=== PATIENT | male | born 1950 | race Caucasian/White ===

== ENCOUNTER → 2017-10-25 | Outpatient (CLI) | payer OTHER, MEDICAID ==
[~2017-10-25] MED LIST: ALEVE220 MG PO; AMOXIL 875 MG875 M1 PO; AUGMENTIN 875-1 EACH PO; CIPRO500 MG PO; DIABETA 5MG TABL5 MG PO; DOXYCYCLINE 10100 MG PO; DUONEB 2.5-0.5 M3 ML INH; FERREX 150 PLU1 EAC1 PO; GLUCOPHAGE XR500 MG PO; HYTRIN 1 MG CAP1 MG PO; IBUPROFEN 800800 M1 PO; INSULIN NEEDLES; LANCETS; LANTUS SUBQ; LEVAQUIN 500 M500 M2 PO; LIORESAL 10 MG10 MG PO; LISINOPRIL20 MG PO; LISINOPRIL5 MG PO; MAGNESIUM OXID400 MG PO; MERREM1 GM IV; METFORMIN HCL500 M1 PO; MINOCIN100 MG PO; NAPROSYN375 MG PO; NASAL DECONGEST10 MG PO; NEURONTIN 300300 M1 PO; NOVOLOG100 UNIT/1 SUBQ; NYAMYC15 GM TOP; ONDANSETRON HCL4 M2 PO; OXYCODONE HCL 55 MG PO; OXYCONTIN10 M1 PO; OYSTER SHELL C1 EAC6 PO; PIOGLITAZONE15 MG PO; PREDNISONE 10 M10 MG PO; PROTONIX40 M1 PO; THERAGRAN-M PR1 EAC1 PO; TYLENOL325 MG PO; UNASYN 3 GM VIAL3 G1 IVPB; UNICOMPLEX M TA1 TA1 PO; VANCO 1.251.25 GM/15 IV; VITAMINC500 PO; ZYVOX600 MG PO
[2017-10-25 11:09] VITALS: BP 100/62; BP 102/44; BP 105/53; BP 108/50
[2017-10-25 13:35] VITALS: BP 100/58; BP 100/62; BP 105/53; BP 112/74
--- NOTE | 2017-10-25 15:40 | NUR ---
TRANSFUSION COMPLETED AND TOLERATED WELL. DENIES ADVERSE REACTION AND NONE NOTED.
== END ==
LOC: M.INFUS 05:03
DX: D64.9 Anemia, unspecified (principal)

== ENCOUNTER → 2017-11-23 | Outpatient (CLI) | payer OTHER, MEDICAID ==
[2017-11-23 08:45] VITALS: BP 117/60
[2017-11-23 10:10] VITALS: BP 115/59; BP 115/69; BP 132/61; BP 141/63
[2017-11-23 12:10] VITALS: BP 103/58; BP 115/59; BP 115/69; BP 125/66; BP 91/56
--- NOTE | 2017-11-23 14:44 | NUR ---
PT ARRIVED TO INFUSION AT 0815. TYPE AND CROSSMATCH ORDERD AND PIV STARTED IN PT'S R-FA ON 5TH ATTEMPT, 2ND RN. PT'S V.S. STABLE, THOUGH SAT IS ONLY 83%. PT.REFUSED OXYGEN THOUGH. 1ST UNIT OF BLOOD GOT STARTED AT 1015. PT TOLERATED WELL. 2ND UNIT OF BLOOD STARTED AT 1220. PT. HAD HIS NURSING AID WITH HIM THE WHOLE TIME. LUNCH WAS PROVIDED THOUGH UNSURE OF HOW MUCH HE ATE. HE SLEPT MOST OF THE TIME. HE RECLINED AND/OR SAT UP IN HIS ELECTRIC W/C, AND SEEMED PRETTY UNCOMFORTABLE BY THE END, THOUGH HE DENIED ANY NEEDS. AFTER INFUSION COMPLETE AND FINAL V.S. OBTAINED, PT DC'ED HOME AT THIS TIME.
== END ==
LOC: M.INFUS 01:53
DX: D64.9 Anemia, unspecified (principal); D47.3 Essential (hemorrhagic) thrombocythemia

== ENCOUNTER → 2018-01-22 | Outpatient (CLI) | payer OTHER, MEDICAID ==
--- NOTE | 2018-01-22 10:37 | NUR ---
Pt arrived via electric w/c to pacu for transfusion of 2 units of blood. Had David lift & bed ready for patient but pt is refusing to be placed in bed. Encouraged pt to lay down d/t length of time to be in the w/c and that he has known pressure sores. Pt stated that he will move himself around in the chair and would lean himself back to a bed position. Reviewed med and history with no changes needed for last infusion in October.
--- NOTE | 2018-01-22 11:00 | NUR ---
Pt now reclining back in his chair to a full lying position.
[2018-01-22 11:32] VITALS: BP 92/44; BP 94/72; BP 96/55
--- NOTE | 2018-01-22 12:30 | NUR ---
Pt is sitting up eating lunch at this time.
--- NOTE | 2018-01-22 13:30 | NUR ---
Pt tolerating infusion well, has changed position to tilt to right side.
[2018-01-22 13:54] VITALS: BP 102/58; BP 87/50; BP 92/61; BP 94/72
--- NOTE | 2018-01-22 14:35 | NUR ---
Pt is tilting back to reclined position. Brought back up the potential for getting into the bed and patient refused at this time.
--- NOTE | 2018-01-22 17:00 | NUR ---
Pt infusion completed at 1600. Flushed line with NS and IV DC'd at 1620. Pt has no s/sx of reaction to the blood. Called trasport for berry picker at 1630. Report called to [facility] and spoke with nurse Tolentino. Urine emptied from bautista bag at 950cc. Pt out for transport at 1635.
== END ==
LOC: M.INFUS 01:27
DX: D64.9 Anemia, unspecified (principal)

== ENCOUNTER 2018-01-24 04:20 | Inpatient (IN) | payer OTHER, MEDICAID ==
[~2018-01-24] VITALS: Ht 172.7 cm; Wt 84.8 kg
[2018-01-24] VITALS (20 sets, daily range): BP systolic 85–113; BP diastolic 39–62
[~2018-01-24 04:20] MED LIST changes: -DOXYCYCLINE 10100 MG PO; -DUONEB 2.5-0.5 M3 ML INH; -LEVAQUIN 500 M500 M2 PO; -NYAMYC15 GM TOP; -ONDANSETRON HCL4 M2 PO; -OYSTER SHELL C1 EAC6 PO; -PREDNISONE 10 M10 MG PO; -PROTONIX40 M1 PO
--- NOTE | 2018-01-24 04:28 | NUR ---
RT AT BEDSIDE TO GIVE NEB TX
[2018-01-24] MEDS ORDERED: ONDANSETRON HCL4 M2 PO (04:30)
[2018-01-24] MEDS ORDERED: DUONEB 2.5-0.5 M3 ML INH (04:30)
[2018-01-24] MEDS ORDERED: NYAMYC15 GM TOP (04:30)
[2018-01-24] MEDS ORDERED: OYSTER SHELL C1 EAC6 PO (04:31)
[2018-01-24 04:43] LABS: BE 0.5 mmol/L (-2 to +3); HCO3 25.4 mmol/L (22.0-26.0); PO2 119.1 mmHg (75.0-100.0)
[2018-01-24 05:07] LABS: HEMATOCRIT 30.2 % (42.0-52.0); HEMOGLOBIN 9.9 gm/dL (14.0-18.0); MCH 24.6 pg (26.0-34.0); MCHC 32.7 g/dL (28.0-37.0); MCV 75.3 fL (80.0-100.0); MPV 6.6 fl. (7.2-11.1); NUCLEATED RBCS 0 /100WBC; PLATELET COUNT* 716 thou/uL (150-400); RBC 4.01 mil/uL (4.50-6.00); RDW-CV 20.1 % (10.5-14.5); WBC 37.3 thou/uL (4.0-11.0)
[2018-01-24 05:32] LABS: APTT 33.6 Seconds (25.0-31.3); INR 1.2; PROTIME 11.3 Seconds (9.20-11.50)
[2018-01-24 05:36] LABS: ANION GAP 13 mmol/L (7-16); BUN 20 mg/dL (7-18); CALCIUM 8.3 mg/dL (8.5-10.1); CHLORIDE 94 mmol/L (98-107); CO2 23 mmol/L (21-32); CREATININE 0.6 mg/dL (0.6-1.3); GLUCOSE 111 mg/dL (70-99); POTASSIUM 4.7 mmol/L (3.5-5.1); SODIUM 130 mmol/L (136-145)
[2018-01-24 05:46] LABS: ALBUMIN 2.1 g/dL (3.4-5.0); ALKALINE PHOSPHATASE 113 U/L (46-116); LIPASE 32 U/L (73-393); MAGNESIUM 1.2 mg/dL (1.8-2.4); NT-PRO BRAIN NAT PEPTIDE 735 pg/mL (<300); SGOT 23 U/L (15-37); SGPT 13 U/L (30-65); TOTAL BILIRUBIN 0.5 mg/dL (<0.1-1.0); TOTAL PROTEIN 6.9 g/dL (6.4-8.2); TROPONIN-I LEVEL <0.06 ng/mL (<0.06)
[2018-01-24 06:04] LABS: ABSOLUTE LYMPHOCYTES 0.4 thou/uL (0.8-5.3); ABSOLUTE MONOCYTES 0.4 thou/uL (0.0-1.2); ABSOLUTE NEUTROPHILS 36.6 thou/uL (1.6-8.1)
[2018-01-24 06:05] LABS: ANISOCYTOSIS 1+; PLATELET ESTIMATE INCREASED; TOXIC GRANULATION 1+
--- NOTE | 2018-01-24 10:50 | NUR ---
ASSUMED CARE OF PT AT 0730. REPORT RECEIVED. PT RESTING IN BED. PT A&0X4, PALE, FORGETFUL, ANXIOUS AND IRRITABLE. ADMISSION ASSESSMENT AND HISTORY COMPLETED. REFER TO CHARTING. 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 ON 11 L HIGH FLOW NC SAT 93%. TACHYPNEA NOTED. COARSE LUNG SOUNDS NOTED. PT STATES HE IS NOT SHORT OF BREATH AND DOES NOT WANT TO BE ON THAT MUCH OXYGEN. EDUCATION GIVEN BY NURSING AND RESPIRATORY STAFF. PT STATES HE DOES NOT WEAR ANY OXYGEN AT THE [facility] EXCEPT FOR CPAP AT [facility]. PT RECEIVING BREATHING TREATMENTS. GOODEN TO DEPENDENT DRAINAGE. PT CAME WITH GOODEN CATHETER FROM [facility]. IVF AT 150ML/HR. PT IS CONTRACTED, POOR HISTORIAN. MUTIPLE WOUNDS NOTED THROUGHOUT. STAGE 4 TO EACH BUTTOCKS, RASH TO LEFT HIP AND REDNESS TO HEELS. WOUND CARE CONSULTED. PT REFUSING TO REPOSITION EVERY 2 HOURS FOR COMFORT. EDUCATION GIVEN. PT HYPOTENSIVE. SEPSIS SCREEN POSITIVE. DR GARCIAS HERE TO SEE PT. ORDERS RECEIVED FOR PT TO TRANSFER TO ICU AND FOR CT ABD/PELVIS AND CTA. PT NPO. WOUND CARE NURSEADONIS HERE TO SEE PT- WILL SEE PT IN ICU. REPORT GIVEN TO [facility] CLINICAL REGISTERED NURSE. PT TRANSFERRED TO ICU VIA BED, CHART AND ALL BELONGINGS WITH NURSING STAFF TO BED 05.
--- NOTE | 2018-01-24 11:16 | NUR ---
CM SPOKE MAGGIE THE PATIENT TO DISCUSS HOME SITUATIION, DISCHARGE PLANNING, AND TO INFORM OF THE ROLE OF CM. PATIENT IS KNOWN TO CM FROM PREVIOUS ADMISSION. PATIENT RESIDES AT [facility], AND PLANS TO RETURN THERE AT D/C. THE STAFF AT [facility] ASSIST THE PATIENT WITH ADL'S, AND USE A MAYUR LIFT FOR ALL TRANSFERS. RN IN-CHARGE OF THE PATIENT INFORMS THAT THE PATIENT WILL TRANSFER TO ICU BED 5. CM WILL REMAIN AVAIALBLE TO ASSIST AND FOLLOW NEEDED. [facility] PHONE: [phone] FAX:[phone]
--- NOTE | 2018-01-24 11:48 | NUR ---
PT ADMITTED TO ROOM 005 FROM 2ND FLOOR AT 1045 . PT AOX4. PER DR. PHILLIP PT TO HAVE 30ML/KG FLUID BOLUS FOR SEPSIS AND HAVE CENTRAL LINE INSERTED. DR. BLUM NOTIFIED OF CENTRAL LINE NEED AND PT EDUCATED ON PROCEDURE AND SIGNED CONSENT. PT NPO AT THIS TIME FOR CT AROUND 1 PM WILL CONTINUE TO MONITOR.
--- NOTE | 2018-01-24 14:10 | CON ---
[facility] [address] [place] [address] CONSULTATION Name: KARIKIKI Abhi Room: [address] IN M.R.#: [id number] Admission: 01/24/18 Attend Phys: David Herrera MD Discharge: Date of : 54 Report #: [id number] THIS REPORT FOR: //name// [facility] DATE OF SERVICE: 01/24/2018 INFECTIOUS DISEASE CONSULTATION ATTENDING PHYSICIAN: David Herrera M.D. REASON FOR EVALUATION: Pneumonitis, complicated by respiratory failure and encephalopathy. HISTORY OF PRESENT ILLNESS: Chart reviewed, the patient examined. This is a 67-year-old whom I am quite familiar with, who has quadriparesis, has bilateral ischial decubitus ulcers, both of which are stage 4 and chronic osteomyelitis. He resides in a senior living. He has been evaluated for more definitive treatment. Apparently, it has not been done. At the senior living, he developed a productive cough for the last 2 days prior to admission, described phlegm is having some degree of color. It is somewhat variable in terms of volume. It is not clear whether he has fevers. He was felt to be encephalopathic. Evaluation confirmed hypoxemia. Also hemoglobin less than 7. It is notable he wears CPAP at night for sleep apnea and he was trying to remove that. He was noted to be hypotensive as well. He was admitted and then subsequently transferred to the Intensive Care Unit, where I have seen him. He is actually reasonably lucid at this point. He is on supplemental oxygen. He admits to moderate degree of discomfort. Lactic acid is 1.3. ABGs: pH showed 7.4, pCO2 of 42 and pO2 of 119, although he was on 100% FIO2. White count was markedly elevated at 37.3. He did have evidence of toxic granulations. He was dosed with vancomycin, piperacillin, tazobactam and levofloxacin. ALLERGIES: SULFA AND HYDROCODONE. CURRENT MEDICATIONS: Include p.r.n. analgesics, antiemetics, ipratropium and albuterol inhaler, ascorbic acid, insulin lispro, methylprednisolone, gabapentin, vancomycin, enoxaparin, terazosin, levofloxacin and pantoprazole. PAST MEDICAL HISTORY: As described above, history of chronic anemia, history of pheochromocytoma, chronic decubitus ulcers and some COPD and diabetes mellitus. SOCIAL HISTORY: He smokes cigarettes, past use of ethanol. FAMILY HISTORY: [place] [address] CONSULTATION Name: KIKI PIERCE Room: [address] IN [facility]#: [id number] Admission: 01/24/18 Attend Phys: David Herrera MD Discharge: Date of : 54 Report #: [id number] REVIEW OF SYSTEMS: Denies significant pulmonary-related complaints at this point. Denies nausea or diarrhea. No abdominal-related pain. PHYSICAL EXAMINATION: GENERAL: He appears chronically ill, undernourished. He is only mildly encephalopathic at this point. VITAL SIGNS: Temperature 98.2, pulse 95, respirations 15 and blood pressure 103/54. SKIN: Warm, dry. NECK: Supple. LUNGS: Scattered coarse breath sounds. HEART: Regular. Borderline tachycardic. I do not appreciate a murmur. ABDOMEN: Soft. It is mildly distended. There are no peritoneal signs. Bilateral ischial wounds are inspected. He does have a fairly good base, especially on the left. On the right, there is a small area of palpable bone that is appreciated. Overall degree of inflammation is mild to moderate. There is no significant odor or purulence at this point. GENITOURINARY: Deferred. RECTAL: Deferred. LABORATORY DATA: Chest x-ray, some bilateral interstitial infiltrates. CBC: White count of 37.3, H and H 9.9 and 30.3 and platelets of 716,000. Electrolytes: Sodium 130, potassium 4.7, chloride 94, bicarbonate is 23, anion gap of 13 and BUN and creatinine 20 and 0.6. LFTs unremarkable. Albumin of 2.1. Total protein 6.9. Estimated GFR of 135. PT of 11.3, INR 1.2. Lactic acid of 1.3. ABGs: A pH of 7.400, pCO2 of 42 and pO2 of 119.1, it was on 100%. ASSESSMENT AND PLAN: Pneumonitis in the setting of the patient who is profoundly immunocompromised. I think he has lost additional weight since I have seen him. He continues to have bilateral deep ischial wounds. I am not inclined to think that sepsis is due to them and that it is quite consistent with osteomyelitis. We will continue combination therapy for the moment, giving supportive measures including the oxygen supplementation. He was encouraged to expectorate any sputum and to optimize his nutritional status. <ELECTRONICALLY SIGNED> By: Jenaro Rangel MD 01/24/18 1410 1320 [id number] Rangel MD /nt
--- NOTE | 2018-01-24 15:59 | EKG ---
[place] [address] ELECTROCARDIOGRAM REPORT Name: KIKI PIERCE Room: [address] ADM IN .R.#: [id number] Admission: 01/24/18 Attend Phys: David Herrera MD Discharge: Date of : 54 Report #: [id number] THIS REPORT FOR: //name// [facility] ED Test Date: 2018-01-24 Test Time: 04:26:27 Pat Name: KIKI PIERCE Department: Room: [facility] Gender: M Cook Dessert: MEMO Esparza : 1950 Requested By: Suhas Mendoza Order Number: [id number] MD: Ion Pulido Measurements Intervals [place] Rate: 124 P: 74 FL: 155 QRS: -90 QRSD: 107 T: 96 QT: 310 QTc: 446 Interpretive Statements Sinus tachycardia Probable left atrial enlargement Inferior infarct, old Consider anterior infarct Lateral leads are also involved Compared to ECG 06/22/2017 11:29:40 Myocardial infarct finding now present Electronically Signed On 01-24-2018 15:59:11 CDT by Ion Pulido [email or web address] <ELECTRONICALLY SIGNED> By: Ion Pulido MD, [facility] 01/24/18 1559 0426 0426 Ion Pulido MD, [facility] /EPI
--- NOTE | 2018-01-24 17:20 | 2DMMODE ---
[place] [address] 2 D/M-MODE ECHOCARDIOGRAM Name: KARIKIKI L Room: [address] IN [facility]#: [id number] Admission: 01/24/18 Attend Phys: David Herrera, Discharge: Date of : 54 Date of Service: 01/24/18 1720 Report #: [id number] THIS REPORT FOR: //name// APPROVED REPORT Study performed: 01/24/2018 14:20:59 EXAM: Comprehensive 2D, Doppler, and color-flow Echocardiogram Patient Location: In-Patient Room #: [facility] Status: routine BSA: 1.68 HR: 84 bpm BP: 98/54 mmHg Rhythm: NSR Other Information Technically limited study due to subcostal view only view available. Indications Hypotension 2D Dimensions LVEF(%): 72.40 (>50%) IVSd: 11.88 (7-11mm) LVOT Diam: 22.70 (18-24mm) LVDd: 46.39 mm PWd: 10.94 (7-11mm) LVDs: 27.16 (25-40mm) Aortic Root: 39.03 mm Holcomb's LVEF: 72.40 % Aortic Valve AoV Peak Conner.: 1.49 m/s AO Peak Gr.: 8.89 mmHg LVOT Max P.84 mmHg AO Mean Gr.: 5.12 mmHg LVOT Mean P.56 mmHg LVOT Max V: 0.84 m/s AO V2 VTI: 26.18 cm LVOT Mean V: 0.58 m/s GEMMA (VTI): 3.13 cm2 LVOT V1 VTI: 20.27 cm Pulmonary Valve PV Peak Conner.: 0.88 m/s PV Peak Gr.: 3.08 mmHg Tricuspid Valve TR Peak Gr.: 40.08 mmHg RVSP: 45.00 [place] [address] 2 D/M-MODE ECHOCARDIOGRAM Name: KIKI PIERCE Abhi Room: [address] IN [facility].#: [id number] Admission: 01/24/18 Attend Phys: David Herrera, Discharge: Date of : 54 Date of Service: 01/24/18 1720 Report #: [id number] Left Ventricle The left ventricle is normal size. There is normal LV segmental wall motion. There is normal left ventricular wall thickness. Left ventricular systolic function is normal. The left ventricular ejection fraction is within the normal range. LVEF is 60-65%. This study is not technically sufficient to allow evaluation of the LV diastolic function. Right Ventricle The right ventricle is normal size. The right ventricular systolic function is normal. Atria Left atrium is mildly dilated. Right atrium is mildly dilated. Aortic Valve Mild aortic valve sclerosis. Mild aortic regurgitation. There is no aortic valvular stenosis. Mitral Valve The mitral valve is normal in structure. Trace mitral regurgitation. No evidence of mitral valve stenosis. Tricuspid Valve The tricuspid valve is normal in structure. Mild tricuspid regurgitation. The RVSP is 45-50 mmHg. Pulmonic Valve The pulmonary valve is normal in structure. There is no pulmonic valvular regurgitation. Great Vessels The aortic root is normal in size. IVC is normal in size and collapses with >50% inspiration Pericardium There is no pericardial effusion. <Conclusion> The left ventricle is normal size. There is normal left ventricular wall thickness. Left ventricular systolic function is normal. The left ventricular ejection fraction [place] [address] 2 D/M-MODE ECHOCARDIOGRAM Name: KIKI PIERCE Room: [address]#: [id number] Admission: 01/24/18 Attend Phys: David Herrera, Discharge: Date of : 54 Date of Service: 01/24/18 1720 Report #: [id number] LVEF is 60-65%. The right ventricle is normal size. Left atrium is mildly dilated. Right atrium is mildly dilated. Mild aortic valve sclerosis. Mild aortic regurgitation. There is no aortic valvular stenosis. The mitral valve is normal in structure. Trace mitral regurgitation. The tricuspid valve is normal in structure. Mild tricuspid regurgitation. The RVSP is 45-50 mmHg. IVC is normal in size and collapses with >50% inspiration There is no pericardial effusion. There is normal LV segmental wall motion. <ELECTRONICALLY SIGNED> By: Ion Pulido MD, FACC 01/24/181719 19 19 Ion Pulido MD, FACC /INF
[2018-01-25] VITALS (16 sets, daily range): BP systolic 88–117; BP diastolic 44–62
[2018-01-25 04:22] LABS: ABSOLUTE LYMPHOCYTES 0.4 thou/uL (0.8-5.3); ABSOLUTE MONOCYTES 0.6 thou/uL (0.0-1.2); ABSOLUTE NEUTROPHILS 33.3 thou/uL (1.6-8.1); BASOPHILS 0.1 %; HEMATOCRIT 24.5 % (42.0-52.0); LYMPHOCYTES 1.1 %; MCH 24.3 pg (26.0-34.0); MCHC 32.1 g/dL (28.0-37.0); MCV 75.8 fL (80.0-100.0); MONOCYTES 1.7 %; NUCLEATED RBCS 0 /100WBC; PLATELET COUNT* 679 thou/uL (150-400); POLYS 97.1 %; RBC 3.23 mil/uL (4.50-6.00); RDW-CV 20.3 % (10.5-14.5); WBC 34.3 thou/uL (4.0-11.0)
[2018-01-25 04:40] LABS: PREALBUMIN 9.1 mg/dL (18.0-35.7)
[2018-01-25 04:52] LABS: CREATININE 0.7 mg/dL (0.6-1.3)
[2018-01-25 04:57] LABS: HEMOGLOBIN 7.8 gm/dL (14.0-18.0)
[2018-01-25 05:11] LABS: POTASSIUM 3.6 mmol/L (3.5-5.1)
--- NOTE | 2018-01-25 05:11 | NUR ---
PT. PROGRESSING TOWARDS GOALS. BP'S REMAIN SOFT BUT STABLE. REFUSED MOST TURNS THIS SHIFT. IVF REMAIN INFUSING. SLEEPING AT THIS TIME, CALL LIGHT IN REACH. WILL CONTINUE TO MONITOR.
[2018-01-25] MEDS ORDERED: OXYCODONE HCL 55 MG PO (06:17)
--- NOTE | 2018-01-25 08:20 | NUR ---
PT BS CHECKED RESULTED 243, PT REQUESTS 1 UNIT. PT LIKE TO DICTATE CARE RIGHT TO THE POINT OF WHAT FINGER AND WHERE ON FINGER TO TO OBTAIN BLOOD SAMPLE. PT REFUSING TURN AT 0800, PT TEACHING WHY HE NEEDS TO TURN, PT UNDERSTANDS TEACHING BUT STILL REFUSES TO TURN. PT EATING BREAKFAST TRAY AND IS VERY PATICULAR IN HOW TRAY IS PLACED. PT IN SEMI FOWLERS POSITION, ASKED PT IF HE WOULD LIKE ME TO ELEVATE HIS HEAD HIGHER IN BED, PT REFUSED STATING THAT I ALWAYS EAT LIKE THIS. PT GIVEN EGULAR JELLY ON TRAY, PT REQUESTED ALL OF JELLY BE PLACED ON TOAST.WILL CONTINUE TO MONITOR FREQUENTLY
--- NOTE | 2018-01-25 12:06 | NUR ---
WOUND CARE NOTE: CONSULT RECEIVED FOR ULCER. PATIENT WELL KNOWN TO ME FROM PREVIOUS HOSPITAL STAYS. PRESENTS WITH CHRONIC STAGE 4 PRESSURE ULCERS TO BILATERAL ISCHIAL TUBEROSITIES. RIGHT ISCHIAL TUBEROSITY: 5X4X2.9 WITH UNDERMINING FROM 12-3 O'CLOCK 5.5 CM. WOUND IS PINK, MOIST. NO SLOUGH TISSUE NOTED. THERE IS BONE PRESENT IN APPROXIMATELY 10% OF WOUND BED. CHLOE-WOUND WITH NEW EPITHELIUM AND SLIGHT INFLAMMATION. WOUND IS DRAINING MODERATE AMOUNTS OF SEROSANGUINEOUS DRAINAGE. LEFT ISCHIAL TUBEROSITY: 6.5X4X2.5 WITH UNDERMINING FROM 6-12 O'CLOCK 4CM. WOUND IS PINK, MOIST. NO SLOUGH TISSUE NOTED. ABLE TO PALPATE BONE, NOT VISIBLE. CHLOE-WOUND WITH NEW EPITHELIUM AND SLIGHT INFLAMMATION. WOUND IS DRAINING MODERATE AMOUNTS OF SEROSANGUINEOUS DRAINAGE. CLEANSED BOTH OF THESE WOUNDS WELL WITH WOUND CLEANSER, PATTED DRY. PACKED WITH AQUACEL AG AND SECURED WITH BORDERED FOAM. LEFT TROCHANTER: AREA OF BLANCHABLE REDNESS, POSSIBLE ABRASION, NOT A PRESSURE ULCER. APPLIED BARRIER OINTMENT. LATERAL LEFT FOOT: 2 AREAS OF BLANCHABLE REDNESS-MALLEOLUS AND 5TH METATARSAL. GROIN AND SCROTUM ARE RED SMALL ULCERATION NOTED TO THE RIGHT SIDE OF THE SCROTUM, APPLIED BARRIER OINTMENT. MEATUS WITH SOME EROSION FROM THE CATHETER/MOISTURE RELATED BREAKDOWN. EDUCATED PATIENT ON IMPORTANCE OF TURNING AND KEEPING HOB <30 DEGREES, PATIENT COMMUNICATES UNDERSTANDING AND VERBALIZED THAT HE NEEDS TO STAY OFF OF THE AREAS. PATIENT ABLE TO HELP WITH TURN AND STAYED ON LEFT SIDE. EDUCATED IMPORTANCE OF EATING WELL, COMMUNICATED UNDERSTANDING. RECOMMEND TURN Q2 HOURS-HE CAN ASSIST LIMIT HOB <30 DEGREES IF RESPIRATORY STATUS CAN TOLERATE ENCOURAGE GOOD NUTRITION AND HYDRATION FOR WOUND HEALING LOW AIR LOSS MATTRESS-ORDERED
--- NOTE | 2018-01-25 12:16 | NUR ---
ICU ROUNDING: CM SPOKE TO THE RN IN-CHARGE OF THE PATIENT AND HE INFORMS THAT THE PLASTICS WORKER HAS ORDERED ARGINADE FOR WOUND HEALING. PATIENT HAS SLIDING SCALE INSULIN. CM WILL REMAIN AVAILABLE TO ASSIST AND FOLLOW NEEDED.
--- NOTE | 2018-01-25 13:42 | CON ---
[address] [address] CONSULTATION Name: KIKI PIERCE Abhi Room: [address] IN M.R.#: [id number] Admission: 01/24/18 Attend Phys: David Herrera MD Discharge: Date of : 54 Report #: [id number] THIS REPORT FOR: //name// CC: David Alas [facility] DATE OF SERVICE: 01/24/2018 Consult has been requested by Dr. Herrera. INDICATION FOR CONSULTATION: Hypoxia and pulmonary infiltrates. HISTORY OF PRESENT ILLNESS: This is a 67-year-old gentleman past medical history includes a history of COPD. The patient is not on supplemental oxygen and is not on long-term prednisone at home. The patient is a resident of long-term care facility. He does have a history of quadriparesis and has had significant decubitus ulcers with various resistant organisms previously cultured. The patient has been followed by Dr. Rangel in the past. The patient is admitted today with hypoxemia initially requiring up to 11 liters of oxygen to maintain O2 saturation in the low 90s. He is reported to be febrile and has had a productive cough for 2 days prior to admission. His sputum is described as being colored. The patient at one point also is noted to have a hemoglobin of less than 7; however, I do not see any documentation of a blood transfusion and the patient's hemoglobin right now is 9.9. He does have significant leukocytosis with WBC count of 37.3. The patient is hemodynamically stable at this time. His blood pressure is on the lower side; however, he is not on pressors. His O2 saturation in fact has improved to the high 90s on 10 liters oxygen. He has a respiratory rate in the teens, so he does not appear to be tachypneic and he is fairly drowsy, but I was able to arouse him. When aroused, he did not provide any meaningful history. The patient also did not answer questions, which I asked for review of systems. I did ask him 12 questions. PAST MEDICAL HISTORY: COPD, not on oxygen long-term. I do not have quadriparesis, decubitus ulcers, pheochromocytoma, diabetes. I do not have a measure of his left ventricular ejection fraction available at this time, chronic osteomyelitis. Possible history of obstructive sleep apnea, a definite information is not available. SOCIAL HISTORY: He is reported to be a smoker, I am unable to quantify at this time. He is reported to have used alcohol in the past in significant quantities and has reported to have now discontinued, again definite information regarding this is not available at this time. No known history [place] [address] CONSULTATION Name: KIKI PIERCE Room: [address] IN [facility]#: [id number] Admission: 01/24/18 Attend Phys: David Herrera MD Discharge: Date of : 54 Report #: [id number] FAMILY HISTORY: There is no pertinent family history. CURRENT MEDICATIONS: List in [facility] reviewed. ALLERGIES: HE IS REPORTED TO BE ALLERGIC TO SULFONAMIDE ANTIBIOTICS, HYDROCODONE AND ADHESIVE. PHYSICAL EXAMINATION: GENERAL: He is markedly drowsy. I was able to arouse him. When aroused, he did not answer orientation questions and provided no meaningful history. VITAL SIGNS: He has a pulse of 95 and a blood pressure of 110/60. He is saturating 97%-99% on 10 liters nasal cannula. His respiratory rate is 15-16. He is afebrile with a temperature of 36.8. HEENT: Head is normocephalic and atraumatic. Pupils are equal and reactive. There is no throat erythema. NECK: Does not show raised JVP, asymmetry, mass or lymph nodes. CHEST: Symmetrical expansion on inspection and palpation. On auscultation, breath sounds are equal, but decreased. I do not hear any added sounds. HEART: Regular. There is no murmur. ABDOMEN: Soft and nontender. EXTREMITIES: Lower extremities show no edema. There is no calf tenderness. NEUROLOGICAL: Limited due to limited patient cooperation. DIAGNOSTIC DATA: The patient did have a CTA chest performed. It is a fairly limited study due to significant motion artifact. I do not see any obvious pulmonary emboli; however, pulmonary arteries are not adequately evaluated. There are radiopaque densities at bilateral lung bases, again evaluation is limited due to motion. Appears to be a combination of atelectasis and infiltrates, in fact it appears to me that there is more atelectasis than infiltrate present. LABORATORY DATA: The patient's arterial blood gas, which does show relative hypoxemia is in [facility], this is reviewed. The patient's CBC, which does show significant leukocytosis and hemoglobin as discussed above in [facility] reviewed. The patient's chemistries also in [facility] reviewed. Markedly decreased magnesium level at 1.2 is noted. The patient's MRSA swab is pending at this time. ASSESSMENT AND PLAN: 1. Acute hypoxemic respiratory failure, etiology not fully defined at this time. Regardless, there has been a significant improvement in the patient's O2 saturation and we will go ahead and start titrating down the oxygen. There is a possible history of obstructive sleep apnea. Therefore, I will electively order BiPAP while asleep as well as p.r.n. The patient has just had an echocardiogram performed. We will await final report per preliminary report. There are no obvious major abnormalities in the right heart. Venous [place]pp[place] [address] CONSULTATION Name: KIKI PIERCE Abhi Room: [address] IN .R.#: [id number] Admission: 01/24/18 Attend Phys: David Herrera MD Discharge: Date of : 54 Report #: [id number] are pending at this time. 2. Pulmonary infiltrates/atelectasis. Discussion as above. The patient is on Levaquin as well as vancomycin. We can both add a beta-lactam agent or hold off and follow response to current therapy as the ID service is also on the case. I did not add an additional antibiotic at this time, I would defer to the ID service. I did, however, increase the levofloxacin dose to 750 mg daily. Urine for legionella as well as pneumococcal antigens are also ordered. We will follow chest x-rays. 3. Chronic obstructive pulmonary disease exacerbation. The patient is on nebulized bronchodilators as well as Solu-Medrol. I agree with current therapy. We will continue. I did not make any change at this time. 4. Altered mental status, etiology not fully defined at this time. If persists, suggest considering a CT head without contrast. Suggest keeping n.p.o. until the patient is fully awake and able to fully sit up. 5. Fluid and electrolytes. The patient has received a fluid bolus per the sepsis protocol. At this time, considering increase in oxygen needs as well as the fact that the patient's creatinine as well as lactate are normal, I did cut back the patient's running IV fluids. The patient does have significant hypomagnesemia. We will go ahead and order magnesium replacement. Thanks for this consultation. <ELECTRONICALLY SIGNED> By: Tony Gerard MD 01/25/18 1342 1506 [id number] Gerard MD /nt
--- NOTE | 2018-01-25 15:59 | NUR ---
PT TRANSFRERED TO 2 EAST ROOM 221 WITH ALL PERSONAL BELONINGS AND ISOLATION CART.
--- NOTE | 2018-01-25 16:44 | NUR ---
PATIENT TRANSFERRED TO ROOM 221 PER BED THIS EVENING AND PLACED ON AIR MATTERESS. PATIENT ORIENTED TO ROOM AND PROCEDURES. BED ALARM PLACED ON AND CALL LIGHT IS IN REACH. MATAINENCE CALLED TO FIX CALL LIGHT. PATIENT REFUSING TO TURN ON ARRIVAL TO THE ROOM. GOODEN PLACED TO DD. PATIENT PLACED ON TELE MONITOR. TELE SHOWS SR. WILL CONTINUE TO MONITOR.
[2018-01-26 04:09] VITALS: BP 118/61
--- NOTE | 2018-01-26 04:59 | NUR ---
ASSUMED CARE OF PATIENT AT 1900 THE PATIENT REMAINS SR ON THE MONITOR O2 SAT MAINTAINED ON 3L NC CONTINUES TO BE UP WITH MAYUR LIFT AT HS THE PATEINT REFUSED LOVONOX,FAST ACTING INSULIN, AND HALF THE DOSE OF LONG ACTING INSULIN THE PATIENT GLUCOSE CONTINUES TO BE ELEVATED DISCUSSED EDUCATION WAS PROVIDED NEEDS REINFORCED THE PATIENT CONTINUES TO PROGRESS TOWARDS GOALS THE ROUTINE AND PRN REGIMEN CONTINUES TO BE EFFECTIVE FOR SX MANAGEMENT SAFETY INTERVENTIONS CONTINUE BED LOWERED WHEELS LOCKED CALL LIGHT IN REACH SIDE RAILS UP REPORT TO BE GIVEN TO ONCFRANKY SO
[2018-01-26 05:10] LABS: ABSOLUTE BASOPHILS 0.3 thou/uL (0.0-0.2); ABSOLUTE LYMPHOCYTES 0.4 thou/uL (0.8-5.3); ABSOLUTE MONOCYTES 0.5 thou/uL (0.0-1.2); ABSOLUTE NEUTROPHILS 28.2 thou/uL (1.6-8.1); HEMATOCRIT 21.8 % (42.0-52.0); HEMOGLOBIN 7.2 gm/dL (14.0-18.0); LYMPHOCYTES 1.3 %; MCH 24.9 pg (26.0-34.0); MCV 75.5 fL (80.0-100.0); MONOCYTES 1.8 %; MPV 7.1 fl. (7.2-11.1); NUCLEATED RBCS 0 /100WBC; POLYS 95.9 %; RDW-CV 20.1 % (10.5-14.5); WBC 29.4 thou/uL (4.0-11.0)
[2018-01-26 05:16] LABS: PLATELET COUNT* 526 thou/uL (150-400)
[2018-01-26 05:40] LABS: ALBUMIN 1.6 g/dL (3.4-5.0); CALCIUM 8.2 mg/dL (8.5-10.1); CREATININE 0.6 mg/dL (0.6-1.3); MAGNESIUM 1.5 mg/dL (1.8-2.4); POTASSIUM 4.5 mmol/L (3.5-5.1); TOTAL BILIRUBIN 0.2 mg/dL (<0.1-1.0); TOTAL PROTEIN 5.8 g/dL (6.4-8.2)
[2018-01-26 08:00] VITALS: BP 101/49
[2018-01-26 11:38] VITALS: BP 111/56
[2018-01-26 16:22] VITALS: BP 115/49
--- NOTE | 2018-01-26 18:30 | NUR ---
ASSUMED CARE OF PT AT 0730. PT CONTINUES TO BE A&O X4 CALM AND COOPERATIVE. HE HAS BEEN TRACING NSR ON THE MONITOR AND VSS ON 3L OF O2 VIA NC. PT DRESSINGS CHANGED TO BILATERAL BUTTOCKS TODAY. PT HAS BEEN EATING GREATER THAN 75% OF HIS MEALS AND HAS BEEN DRINKING ADEQUATE AMOUNTS OF WATER. PT C/O SHOULDER AND HIP PAIN AND PRN OXYCODONE WAS ADMINISTERED AND EFFECTIVELY REDUCED THE PATIENTS PAIN TO A TOLERABLE LEVEL. PT CURRENTLY RESTING IN BE WATCHING TV. NURSING WILL CONTINUE TO MONITOR.
[2018-01-26 20:00] VITALS: BP 113/54
[2018-01-27 00:30] VITALS: BP 122/54
[2018-01-27 04:13] VITALS: BP 127/65
[2018-01-27 05:00] LABS: HEMATOCRIT 23.6 % (42.0-52.0); HEMOGLOBIN 7.5 gm/dL (14.0-18.0); MCH 24.2 pg (26.0-34.0); MCHC 31.9 g/dL (28.0-37.0); MCV 75.8 fL (80.0-100.0); MPV 6.7 fl. (7.2-11.1); NUCLEATED RBCS 0 /100WBC; PLATELET COUNT* 494 thou/uL (150-400); RBC 3.12 mil/uL (4.50-6.00); RDW-CV 20.2 % (10.5-14.5)
[2018-01-27 05:17] LABS: ALBUMIN 1.7 g/dL (3.4-5.0); CALCIUM 8.4 mg/dL (8.5-10.1); CREATININE 0.6 mg/dL (0.6-1.3); POTASSIUM 4.3 mmol/L (3.5-5.1); TOTAL BILIRUBIN 0.3 mg/dL (<0.1-1.0); TOTAL PROTEIN 5.9 g/dL (6.4-8.2)
[2018-01-27 05:18] LABS: PREALBUMIN 13.8 mg/dL (18.0-35.7)
--- NOTE | 2018-01-27 05:21 | NUR ---
ASSUMED CARE OF PATIENT AT 1900 THE PATIENT REMAINS SR ON THE MONITOR O2 SAT MAINTAINED ON NC CONTINUES IV ABX WITHOUT S SX OF ADVERSE EFFECT NOTED TO THE PATIENT PROGRESSES TOWARDS GOALS. THE ROUTINE REGIMEN CONTINUES TO BE EFFECTIVE FOR SX MANAGEMENT SAFETY INTERVENTIONS CONTINUE BED LOWERED WHEELS LOCKED CALL LIGHT IN REACH SIDE RAILS UP REPORT TO BE GIVEN TO ONCOMING SARAY
[2018-01-27 06:18] LABS: ABSOLUTE LYMPHOCYTES 0.8 thou/uL (0.8-5.3); ABSOLUTE MONOCYTES 0.4 thou/uL (0.0-1.2); ABSOLUTE NEUTROPHILS 19.7 thou/uL (1.6-8.1)
[2018-01-27 06:19] LABS: ANISOCYTOSIS 2+; HYPOCHROMASIA 1+; PLATELET ESTIMATE INCREASED; POIKILOCYTOSIS 1+
[2018-01-27 07:30] VITALS: BP 114/58
[2018-01-27 11:26] VITALS: BP 101/48
--- NOTE | 2018-01-27 13:56 | NUR ---
RECEIVED PT CARE 0700. PATIENT IS ALERT AND ORIENTED X4. HE CAN BE FORGETFUL AT TIMES. VSS. 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 PATIENT DENIES ANY SOA. O2 SAT 96% ON 2L UPON INITIAL ASSESSMENT. NURSING AIDES IN TO HELP PATIENT CLEAN UP AND DO A BED BATH AND ASSIST WITH HIS BREAKFAST. RESPIRATORY THERAPY IN POST BREAKFAST TO GIVE BREATHING TREATMENT AND O2 REQUIREMENTS INCREASED. RT FOUND PATIENT'S O2 SAT IN THE 80'S ON 2L NC. RT INCREASED O2 TO 4L NC. O2 SAT 94% ON 4L NC. REPOSITIONED FOR COMFORT WHEN PATIENT ALLOWS STAFF TO REPOSITION HIM. REPLACING ELECTROLYTES PER PROTOCOL. IV ANTIBIOTIC INFUSING PER MAR. AM ASSESSMENT CHARTED. MEDS PER MAR. ORAL BACLOFEN DOSE ADJUSTED PER DR GARCIAS. PLAN TO CHANGE OUT PATIENTS GOODEN CATHETER AND GET A URINE SAMPLE TODAY. BLOOD GLUCOSE ELEVATED THIS SHIFT, PATIENT LIKES TO DICTATE HOW MUCH INSULIN HE RECEIVES AND REFUSES TO TAKE THE FULL REQUIRED AMOUNT PER SLIDING SCALE AT TIMES. PATIENT UPDATED ON PLAN OF CARE. BED ALARM ON. CALL LIGHT WITHIN REACH. WILL CONTINUE TO MONITOR.
[2018-01-27 15:29] VITALS: BP 116/52
--- NOTE | 2018-01-27 17:48 | NUR ---
PATIENT PARTIALLY PROGRESSING TOWARDS GOALS. PAIN CONTROLLED WITH ORAL PAIN MEDICATION AND MUSCLE RELAXER. POOR APPETITE THIS SHIFT. REFUSED INSULIN BEFORE DINNER WHEN HIS GLUCOSE WAS 167. STATED HE DOES NOT WANT INSULIN WHEN HIS GLUCOSE IS <200. WOUND CARE COMPLETED TO PATIENTS WOUNDS AND PICTURES COMPLETED AND ON CHART. O2 TITRATED BACK DOWN TO 2L NC. GOODEN CATHETER CHANGED AND WILL SEND URINE FOR CULTURE. REPLACING MAGNESIUM PER PROTOCOL. BED ALARM ON. HOURLY ROUNDING CHARTED. CALL LIGHT WITHIN REACH. WILL CONTINUE TO MONITOR.
[2018-01-27 18:25] LABS: URINE BILIRUBIN NEGATIVE (Negative); URINE BLOOD TRACE (Negative); URINE CLARITY CLEAR; URINE COLOR YELLOW; URINE GLUCOSE-RANDOM NEGATIVE (Negative); URINE KETONES NEGATIVE (Negative); URINE LEUKOCYTES-REFLEX NEGATIVE (Negative); URINE NITRITE-REFLEX NEGATIVE (Negative); URINE PROTEIN NEGATIVE (Negative); URINE UROBILINOGEN 0.2 E.U./dl (0.2-1.0)
[2018-01-27 20:00] VITALS: BP 117/62
[2018-01-28] VITALS (7 sets, daily range): BP systolic 101–124; BP diastolic 51–84
--- NOTE | 2018-01-28 04:39 | NUR ---
ASSUMED CARE OF PATIENT AT 1900 THE PATIENT REMAINS SR ON THE MONITOR O2 SAT MAINTAINED ON 3L NC CONTINUES TO BE BED REST FREQUENTLY NON COMPLIANT WITH PLAN OF CARE WELLNESS, SAFETY,DM MEDICATION REGIMEN, DIET,SKIN INTEGRITY HAS BEEN REINFORCED NUMEROUS TIMES PATIENT COMMUNICATES UNDERSTANDING THAN CONTINUES BEHAVIOR PATIENT CONTINUES TO PROGRESS TOWARDS GOALS OF DISCHARGE WOUNDS CHANGED BY DAY STAFF C/D/I WITHOUT S/SX OF DISCOMFORT THE ROUTINE REGIMEN CONTINUES TO BE EFFECTIVE FOR SX MANAGEMENT SAFETY INTERVENTIONS CONTINUE BED LOWERED WHEELS LOCKED CALL LIGHT IN REACH SIDE RAILS UP REPORT TO BE GIVEN TO ONCOMING SARAY
[2018-01-28 05:35] LABS: HEMATOCRIT 25.1 % (42.0-52.0); HEMOGLOBIN 8.3 gm/dL (14.0-18.0); MCH 25.2 pg (26.0-34.0); MCV 76.4 fL (80.0-100.0); MPV 7.2 fl. (7.2-11.1); RBC 3.29 mil/uL (4.50-6.00); RDW-CV 20.3 % (10.5-14.5); WBC 15.2 thou/uL (4.0-11.0)
[2018-01-28 05:57] LABS: CALCIUM 8.1 mg/dL (8.5-10.1); CREATININE 0.8 mg/dL (0.6-1.3); MAGNESIUM 1.1 mg/dL (1.8-2.4); POTASSIUM 4.4 mmol/L (3.5-5.1)
--- NOTE | 2018-01-28 11:55 | NUR ---
NO OT AT THIS TIME, PT IS AT BASELINE OF PLOF-DEPENDENT WITH ALL BADLS EXCEPT, FEEDING SETUP.
--- NOTE | 2018-01-28 12:01 | NUR ---
ORDERS RECEIVED. CHART REVIEWED. CMGR NOTES INDICATE PT LIVES IN LTC, RECEIVES ASSIST WITH ADLS, AND REQUIRES MECHANICAL LIFT FOR TRANSFERS. DUE TO DEPENDENT STATUS WITH MOBILITY, ACUTE P.T. INTERVENTION NOT INDICATED.
--- NOTE | 2018-01-28 15:49 | NUR ---
WOUND NURSE: PATIENT SEEN FOR F/U ASSESSMENT OF BILATERAL ISCHIAL ULCERS. RIGHT ISCHIAL ULCER PRESENTS WITH EXPOSED ISCHIAL BONE AND THIN LAYER OF GRANULATION TISSUE, AND <10% SLOUGH IN THE WOUND BED. THERE IS NO PERIWOUND REDNESS, WARMTH, OR INDURATION, BUT THERE IS GRAYISH SLIMY OPAQUE DRAINAGE NOTED. REMOVED DRESSING AND CLEANSED WITH WOUND CLEANSER AND GAUZE, APPLIED SKIN PREP TO INTACT PERIWOUND TISSUE, THEN PACKED WOUND LIGHTLY WITH 1/4 STR DAKINS MOISTENED GAUZE UNDER DRY GAUZE UNDER ABD, THEN SECURED WITH TAPE. APPLIED THE SAME CLEANSING TECHNIQUE AND DRESSING TO BOTH WOUNDS. LEFT ISCHIAL WOUND PRESENTS A DEEP CAVITY, BUT WITHOUT NOTED EXPOSED BONE. WOUND BED COVERED WITH RED, GRANULATION TISSUE.
--- NOTE | 2018-01-28 16:10 | NUR ---
RECEIVED REPORT. ASSUMED CARE OF PT AT 0730. PT A&O X4. VSS, O2 SAT 98% ON 2L PER NC. AM ASSESSMENT AND VITALS COMPLETED CHARTED. RIGHT IJ TRIPLE LUMEN INTACT, ALL PORTS FLUSH WELL. IV ABX INFUSING PER EMAR. MAGNESIUM REPLACED PER PROTOCOL. PT SHOWING STRONG APPETITE TODAY - REQUESTED A BOX LUNCH BEFORE LUNCH AND IS ORDERING EXTRA FOOD WITH MEALS, AND BOOST. PT IS RESISTANT TO DM EDUCATION AND DOES NOT ALWAYS AGREE TO TAKE FULL DOSE OF INSULIN ORDERED. PT IS ALSO RESISTANT TO TURNS AT TIMES AND HAS NOT ALLOWED HEELS TO BE OFF LOADED. LOW AIRLOSS SPECIALTY MATRESS IN PLACE. PT EDUCATED ON NEED TO TURN AND OFFLOAD HEALS TO ALLOW FOR HIS WOUNDS TO HEAL. PT STATES "I KNOW". GOODEN IN PLACE DRAINING LIGHT YELLOW URINE TO DD. NO BM TODAY SO FAR. PT'S WOUNDS TO BILAT ISCHIAL TUBEROSITIES CHANGED BY WOUND NURSE TODAY. FALL PRECAUTIONS ARE IN PLACE. CALL LIGHT IS WITHIN REACH. PT REPOSITIONED Q2HRS FOR COMFORT AT PT ALLOWS. HOURLY ROUNDING. WCTM FOR DURAITON OF SHIFT.
--- NOTE | 2018-01-28 18:26 | NUR ---
VSS. PT REMAINS A&O X4. O2 SAT >90% ON 2L PER NC. PT CONTINUING TO EAT AND DRINK WITHOUT ISSUE. HAS TOLERATED TURNS TO A POINT - WILL NOT FULLY LIE ON SIDE. GOODEN REMAINS IN PLACE TO DD - LIGHT YELLOW OUTPUT. RIGHT TRIPLE LUMEN IJ REMAINS IN PLACE - MAGNESIUM INFUSING AT THIS TIME. PT ASKED FOR ORAL PAIN MEDICATION AND MUSCLE RELAXER THIS AFTERNOON AND RECEIVED IT, PARTIAL RELIEF OBTAINED. DRESSINGS REMAINS IN PLACE TO BILAT TUBEROSITY WOUNDS. PT SLOWLY PROGRESSING TOWARD GOALS. FALL PRECAUTIONS IN PLACE. CALL LIGHT IS WITHIN REACH. HOURLY ROUNDING PERFORMED. WCTM FOR DURATION OF SHIFT.
--- NOTE | 2018-01-29 00:12 | NUR ---
PATIENT HAS BEEN NON-COMPLIANT WITH TURNING, DRESSING CHANGE, LOVENOX, AND HTN MED. REFUSED ALL OF THE ABOVE. VANCO INFUSING WITHOUT DIF, NO SIGN OR SYMPTOMS OF ADVERSE REACTION. PAIN MEDS PRIOR TO BEDTIME. NO SIGN OF DISTRESS. CONT. ON AIR FLOW MATTRESS.
--- NOTE | 2018-01-29 01:25 | NUR ---
APPROACHED PATIENT SECOND TIME FOR DRESSING CHANGE. PATIENT REFUSED. STATES, "ALREADY DONE TODAY, IT DOESN'T NEED IT" WILL PASS ON IN REPORT FOR WOUND CARE NURSE TO BE NOTIFIED. CONT. TO REFUSE TO BE TURNED. WILL PROCEED WITH CURRENT PLAN OF CARE.
--- NOTE | 2018-01-29 03:42 | NUR ---
PATIENT REFUSED HS INSULIN. DID NOT ASK FOR ANY SNACKS.
[2018-01-29 04:00] VITALS: BP 112/67
[2018-01-29 05:15] LABS: ABSOLUTE BASOPHILS 0.1 thou/uL (0.0-0.2); ABSOLUTE LYMPHOCYTES 0.5 thou/uL (0.8-5.3); ABSOLUTE MONOCYTES 0.4 thou/uL (0.0-1.2); ABSOLUTE NEUTROPHILS 15.4 thou/uL (1.6-8.1); BASOPHILS 0.3 %; HEMATOCRIT 26.1 % (42.0-52.0); HEMOGLOBIN 8.8 gm/dL (14.0-18.0); LYMPHOCYTES 2.9 %; MCH 25.1 pg (26.0-34.0); MCHC 33.8 g/dL (28.0-37.0); MCV 74.4 fL (80.0-100.0); MONOCYTES 2.5 %; MPV 7.3 fl. (7.2-11.1); NUCLEATED RBCS 0 /100WBC; PLATELET COUNT* 512 thou/uL (150-400); POLYS 94.3 %; RDW-CV 20.5 % (10.5-14.5); WBC 16.4 thou/uL (4.0-11.0)
[2018-01-29 05:25] LABS: ALBUMIN 1.8 g/dL (3.4-5.0); CALCIUM 8.2 mg/dL (8.5-10.1); CREATININE 0.7 mg/dL (0.6-1.3); POTASSIUM 4.6 mmol/L (3.5-5.1); TOTAL BILIRUBIN 0.3 mg/dL (<0.1-1.0); TOTAL PROTEIN 5.8 g/dL (6.4-8.2)
[2018-01-29 08:10] VITALS: BP 109/55
--- NOTE | 2018-01-29 11:12 | NUR ---
SPOKE WITH DR. RONQUILLO ON THE PHONE REGARDING PATIENT'S DISCHARGE. PHYSICIAN STATED PULMONARY SIGNED OFF THIS WEEKEND AND THAT IT WAS OKAY FOR PT TO DISCHARGE FROM THEIR STANDPOINT.
[2018-01-29 11:47] VITALS: BP 102/60
--- NOTE | 2018-01-29 13:04 | NUR ---
RECIEVED REPORT FROM KAY AND ASSUMED CARE OF PT AT 0730. PT IS A/O X4, PT BP SLIGHTLY LOW AT 109/55, OTHER VSS. TRACING SR ON MONITOR. LUNG SOUNDS ARE CLEAR,O2 SAT 97% ON ROOM AIR. PT MAINTAINS GOODEN SECURE AND PATENT. LAST BM A WEEK AGO PER PT THIS IS NORMAL, REFUSED ANYTHING FOR IT. CENTRAL LINE IN RIGHT IJ SALINE LOCKED AND PATENT. PT IS CALM BUT BEING NONCOMPLIANT WITH INSULIN ORDERS, REFUSING LONG ACTING THIS MORNING. PT DENIES PAIN AT TIME OF ASSESSMENT. PT REMAINS BEDREST WITH Q2T. PT MAINTAINS CONTACT ISOLATION FOR MRSA. PT LEFT RESTING IN BED WITH CALL LIGHT AND FALL PRECAUTIONS IN PLACE.WILL CONTINUE TO [facility]. INFECTIOUS DISEASE SAW PT AND OK FOR D/C AND CHANGED IV ANTIBIOTICS TO PO. HOSPITALIST OK FOR D/C BACK TO SNF.
[2018-01-29 13:52] VITALS: BP 102/60
[2018-01-29] MEDS ORDERED: PROTONIX40 M1 PO (14:04)
[2018-01-29] MEDS ORDERED: LEVAQUIN 500 M500 M2 PO (14:05)
[2018-01-29] MEDS ORDERED: PREDNISONE 10 M10 MG PO (14:07)
--- NOTE | 2018-01-29 15:52 | NUR ---
LANA SPOKE TO THE RN IN-CHARGE OF THE PATIENT AND SHE INFORMS THAT THE DR HAS WRITTEN D/C ORDERS. CM SPOKE TO THE PATIENT AND HIS SISTER TO INFORM OF THE DISCHARGE BACK TO [facility] AND TIME OF TRANSPORT, AND BOTH ARE IN AGREEMENT. LANA SPOKE TO CONNIE WITH [facility] TO INFORM OF THE PATIENT'S DISCHARGE AND SETUP OF TRANSPORTATION WITH [facility]. CM INFORMED THE RN OF THE TIME OF TRANSPORT AND WHERE TO CALL REPORT. RN IN AGREEMENT. CM WILL REMAIN AVIALABLE TO ASSIST AND FOLLOW NEEDED. [facility] PHONE: [phone] FAX:[phone]
--- NOTE | 2018-01-29 16:01 | NUR ---
PT OK FOR DISCHARGE.PAIN MEDICATIONS GIVEN BEFORE DISCHARGE PICTURES TAKEN AND WOUND DRESSINGS CHANGED.CENTRAL LINE REMOVED AND PRESSURE HELD FOR 5 MIN.HEART MONITOR REMOVED AND RETURNED TO NURSES STATION. AMBULANCE SET UP BY CASE MANAGEMENT TO TRANSPORT PT BACK TO [facility].CASE MANAGEMENT SETTING UP FOLLOW UP APPOINTMENT AT [facility]OUND [facility]IN[facility] FOR 2 WEEKS. 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
--- NOTE | 2018-01-29 16:19 | NUR ---
THIS NURSE AGREES WITH ALL CHARTING AND DOCUMENTATION COMPLETED BY MARTY RENTERIA RN.
== END 2018-01-29 15:39 | DRG 871 ==
LOC: M.ERS 04:20 → M.2W 05:46 → M.TBA-ER 05:46 → M.2W 06:32 → M.ICU 10:53 → M.2W 01-25 16:10
PROVIDERS: Family Medicine; Internal Medicine Infectious Disease; ADMIT Internal Medicine
PROC: 02HV33Z Insertion of Infusion Device into Superior Vena Cava, Percutaneous Approach (ICD-10-PCS; principal; 2018-01-24)
DX: A41.9 Sepsis, unspecified organism (principal); J69.0 Pneumonitis due to inhalation of food and vomit; L89.324 Pressure ulcer of left buttock, stage 4; L89.314 Pressure ulcer of right buttock, stage 4; G93.40 Encephalopathy, unspecified; J96.01 Acute respiratory failure with hypoxia; E43 Unspecified severe protein-calorie malnutrition; G82.50 Quadriplegia, unspecified; L89.153 Pressure ulcer of sacral region, stage 3; J44.1 Chronic obstructive pulmonary disease with (acute) exacerbation; J44.0 Chronic obstructive pulmonary disease with (acute) lower respiratory infection; G82.20 Paraplegia, unspecified; E11.9 Type 2 diabetes mellitus without complications; F17.210 Nicotine dependence, cigarettes, uncomplicated; I95.9 Hypotension, unspecified; Z79.899 Other long term (current) drug therapy; Z79.4 Long term (current) use of insulin; Z88.2 Allergy status to sulfonamides; Z88.8 Allergy status to other drugs, medicaments and biological substances; Z68.28 Body mass index [BMI] 28.0-28.9, adult

== ENCOUNTER → 2018-02-05 | Outpatient (CLI) | payer OTHER, MEDICAID ==
[~2018-02-05] MED LIST changes: +DOXYCYCLINE 10100 MG PO; +DUONEB 2.5-0.5 M3 ML INH; +LEVAQUIN 500 M500 M2 PO; +NYAMYC15 GM TOP; +ONDANSETRON HCL4 M2 PO; +OYSTER SHELL C1 EAC6 PO; +PREDNISONE 10 M10 MG PO; +PROTONIX40 M1 PO
== END ==
LOC: M.WC 03:08
DX: E11.622 Type 2 diabetes mellitus with other skin ulcer (principal); L89.324 Pressure ulcer of left buttock, stage 4; L89.314 Pressure ulcer of right buttock, stage 4; L98.411 Non-pressure chronic ulcer of buttock limited to breakdown of skin; E11.42 Type 2 diabetes mellitus with diabetic polyneuropathy; I87.2 Venous insufficiency (chronic) (peripheral); M19.90 Unspecified osteoarthritis, unspecified site; F17.200 Nicotine dependence, unspecified, uncomplicated

== ENCOUNTER 2018-02-06 14:05 | Inpatient (IN) | payer OTHER, MEDICAID ==
[~2018-02-06] VITALS: Ht 180.3 cm; Wt 68.0 kg
[~2018-02-06 14:05] MED LIST changes: -DOXYCYCLINE 10100 MG PO
[2018-02-06 14:07] VITALS: BP 72/42
[2018-02-06 14:31] LABS: HEMATOCRIT 28.8 % (42.0-52.0); HEMOGLOBIN 9.4 gm/dL (14.0-18.0); MCH 25.4 pg (26.0-34.0); MCHC 32.5 g/dL (28.0-37.0); MCV 78.2 fL (80.0-100.0); MPV 7.3 fl. (7.2-11.1); NUCLEATED RBCS 0 /100WBC; PLATELET COUNT* 409 thou/uL (150-400); RBC 3.68 mil/uL (4.50-6.00); RDW-CV 23.6 % (10.5-14.5); WBC 29.8 thou/uL (4.0-11.0)
[2018-02-06 14:40] LABS: APTT 32.4 Seconds (25.0-31.3)
[2018-02-06 14:53] LABS: ANION GAP 7 mmol/L (7-16); BUN 49 mg/dL (7-18); CALCIUM 7.8 mg/dL (8.5-10.1); CHLORIDE 101 mmol/L (98-107); CO2 29 mmol/L (21-32); CREATININE 1.2 mg/dL (0.6-1.3); GLUCOSE 117 mg/dL (70-99); POTASSIUM 4.5 mmol/L (3.5-5.1); SODIUM 137 mmol/L (136-145)
[2018-02-06 15:12] LABS: ALBUMIN 2.3 g/dL (3.4-5.0); ALKALINE PHOSPHATASE 88 U/L (46-116); CK-MB MASS 0.5 ng/mL (<0.5-3.6); NT-PRO BRAIN NAT PEPTIDE 400 pg/mL (<300); SGOT 12 U/L (15-37); SGPT 14 U/L (30-65); TOTAL BILIRUBIN 1.1 mg/dL (<0.1-1.0); TOTAL PROTEIN 6.1 g/dL (6.4-8.2); TROPONIN-I LEVEL <0.06 ng/mL (<0.06)
[2018-02-06 15:51] LABS: ABSOLUTE BASOPHILS 0.3 thou/uL (0.0-0.2); ABSOLUTE EOSINOPHILS 0.3 thou/uL (0.0-0.7); ABSOLUTE LYMPHOCYTES 0.9 thou/uL (0.8-5.3); ABSOLUTE MONOCYTES 1.5 thou/uL (0.0-1.2); ABSOLUTE NEUTROPHILS 26.8 thou/uL (1.6-8.1)
[2018-02-06 15:52] LABS: ANISOCYTOSIS 1+; PLATELET ESTIMATE ADEQUATE
[2018-02-06 15:53] LABS: HYPOCHROMASIA Occasional; MACROCYTES Occasional; MICROCYTES Occasional
[2018-02-06 16:22] LABS: URINE BILIRUBIN NEGATIVE (Negative); URINE BLOOD 3+ (Negative); URINE CLARITY CLOUDY; URINE COLOR YELLOW; URINE GLUCOSE-RANDOM NEGATIVE (Negative); URINE KETONES NEGATIVE (Negative); URINE NITRITE-REFLEX NEGATIVE (Negative); URINE PROTEIN 2+ (Negative); URINE SPECIFIC GRAVITY 1.015 (1.005-1.030); URINE UROBILINOGEN 0.2 E.U./dl (0.2-1.0)
[2018-02-06 16:23] VITALS: BP 93/50
[2018-02-06 16:23] LABS: URINE LEUKOCYTES-REFLEX 3+ (Negative)
[2018-02-06 16:45] VITALS: BP 131/61
[2018-02-06 16:51] LABS: SQUAMOUS NONE SEEN /LPF (0-3)
[2018-02-06 16:52] LABS: URINE RBC >20 Many /HPF (0-2); URINE WBC-REFLEX >25 Many /HPF (0-5)
[2018-02-06 16:53] LABS: AMORPHOUS URATES Moderate /LPF (None Seen); BACTERIA-REFLEX 1-9 Few /HPF (None Seen); CASTS None Seen /LPF (None Seen); MUCUS None Seen strn/LPF (None Seen)
--- NOTE | 2018-02-06 17:37 | EKG ---
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: ED : 1950 Requested By: Suhas Mendoza Order Number: [id number] MD: Adam Iniguez Measurements Intervals [place] Rate: 83 P: 76 ME: 150 QRS: -74 QRSD: 103 T: -12 QT: 377 QTc: 443 Interpretive Statements Sinus rhythm Left anterior fascicular block Low voltage, precordial leads Abnormal R-wave progression, late transition Baseline wander in lead(s) V1 Compared to ECG 01/24/2018 04:26:27 Low QRS voltage now present Sinus tachycardia no longer present Myocardial infarct finding no longer present Electronically Signed On 02-06-2018 17:37:10 CDT by Adam Iniguez [email or web address] <ELECTRONICALLY SIGNED> By: Adam Iniguez MD, [facility] 02/06/18 1737 1448 1448 Adam Iniguez MD, [facility] /EPI
--- NOTE | 2018-02-06 18:22 | NUR ---
RECEIVED REPORT FROM ER, RN. PT TRANSFERRED OVER AT 4761. ALL QUESTIONS ANSWERED. ASSESSMENT CHARTED. AFEBRILE.
[2018-02-06 20:00] VITALS: BP 101/49; BP 87/50
[2018-02-06 22:00] VITALS: BP 83/49
[2018-02-07] VITALS (13 sets, daily range): BP systolic 91–124; BP diastolic 38–78
[2018-02-07 04:34] LABS: ABSOLUTE BASOPHILS 0.2 thou/uL (0.0-0.2); ABSOLUTE LYMPHOCYTES 0.5 thou/uL (0.8-5.3); ABSOLUTE MONOCYTES 0.3 thou/uL (0.0-1.2); ABSOLUTE NEUTROPHILS 22.6 thou/uL (1.6-8.1); BASOPHILS 0.7 %; HEMATOCRIT 25.3 % (42.0-52.0); HEMOGLOBIN 8.2 gm/dL (14.0-18.0); MCH 25.2 pg (26.0-34.0); MCHC 32.6 g/dL (28.0-37.0); MCV 77.5 fL (80.0-100.0); MONOCYTES 1.2 %; MPV 7.3 fl. (7.2-11.1); NUCLEATED RBCS 0 /100WBC; PLATELET COUNT* 373 thou/uL (150-400); POLYS 96.1 %; RBC 3.26 mil/uL (4.50-6.00); RDW-CV 23.4 % (10.5-14.5); WBC 23.5 thou/uL (4.0-11.0)
[2018-02-07 05:04] LABS: CALCIUM 7.5 mg/dL (8.5-10.1); CREATININE 0.7 mg/dL (0.6-1.3); MAGNESIUM 1.3 mg/dL (1.8-2.4)
--- NOTE | 2018-02-07 08:40 | NUR ---
WOUND CARE NOTE: CONSULT RECEIVED FOR COCCYX WOUNDS. PATIENT WELL KNOWN TO ME FROM PREVIOUS HOSPITAL STAYS. PATIENT HAS 2 STAGE 4 PRESSURE ULCERS AT THE ISCHIAL TUBEROSITIES. LEFT ISCHIAL TUBEROSITY: STAGE 4 PRESSURE ULCER MEASURING 6X3.2X2.7 WITH UNDERMINING FROM 12-3 O'CLOCK 3.1CM. RED, MOIST WOUND BED. BONE PRESENT TO APPROXIMATELY 5% OF WOUND BED. CHLOE-WOUND INTACT, LOOKS MUCH BETTER THAN WHEN PREVIOUSLY HERE. NO FOUL ODOR NOTED. RIGHT ISCHIAL TUBEROSITY: STAGE 4 PRESSURE ULCER MEASURING 5X3X3.1 WITH UNDERMINING FROM 6-11 O'CLOCK 3.5 CM. RED, MOIST WOUND BED. BONE PRESENT. CHLOE-WOUND WITH SOME EXCORIATIONS, POSSIBLY FROM TAPE. NO FOUL ODOR NOTED. PATIENT HAD SMALL INCONTINENT OF BOWEL EPISODE, CLEANSED AND PLACED NEW CHUX. PATIENT IS EXTREMELY PARTICULAR ABOUT CARES. REFUSES TO USE WEDGES, REFUSES TO BE MOVED UP IN BED. EDUCATED PATIENT ON STAYING OFF WOUNDS, WILL NEED REINFORCEMENT. RECOMMEND TURN Q2 HOURS HOB <30 DEGREES IF CAN TOLERATE ENCOURAGE GOOD NUTRITION AND HYDRATION TIGHT BLOOD GLUCOSE CONTROL
--- NOTE | 2018-02-07 11:23 | NUR ---
PT REFUSING MOST MEDICATIONS AND TURNS. REFUSED SCDS AND FLU VACCINATION. WILL CONTINUE TO ASSESS.
--- NOTE | 2018-02-07 12:58 | CON ---
[address] [address] CONSULTATION Name: KIKI PIERCE Abhi Room: [address] IN M.R.#: [id number] Admission: 02/06/18 Attend Phys: David Herrera MD Discharge: Date of : 54 Report #: [id number] THIS REPORT FOR: //name// [facility] DATE OF SERVICE: 02/06/2018 ATTENDING PHYSICIAN: David Herrera MD REASON FOR EVALUATION: Sepsis with shock, probable complicated genitourinary tract infection, I suspect pyelonephritis. HISTORY OF PRESENT ILLNESS: Chart reviewed, patient examined. This is a 67-year-old gentleman who has significant medical history including quadriplegia secondary to spinal surgery, has diabetes mellitus as well as chronic anemia, was actually hospitalized up until recently with pneumonitis, has longstanding bilateral stage 4 ischial wounds complicated by chronic osteomyelitis that has been somewhat quiescent. He is not a surgical candidate and he is not generally compliant. He has continued to deteriorate. He has lost a significant amount of weight over the course of recent weeks to months, although he claims his appetite has been fairly good. He was admitted with a marked alteration of his mental status. He really does not respond other than moaning. He is talking nonsensically at times. Due to hypotension, he is admitted to the Intensive Care Unit and fluid resuscitated. Urinalysis now shows marked pyuria and was empirically started on combination therapy with vancomycin and levofloxacin. ALLERGIES: SULFA, LISINOPRIL AND HYDROCODONE. MEDICINES: As noted above. In addition to the antibiotics, pantoprazole, ascorbic acid, enoxaparin, insulin, ipratropium albuterol inhaler, nystatin, p.r.n. analgesics and antiemetics. PAST MEDICAL HISTORY: As noted above. SOCIAL HISTORY: Heavy tobacco smoker and past ethanol use. FAMILY HISTORY: Noncontributory. REVIEW OF SYSTEMS: Not obtainable. PHYSICAL EXAMINATION: GENERAL: He appears chronically ill. With each hospitalization, he further deteriorates. VITAL SIGNS: Temperature 98.1, pulse 70, respirations 13 and blood pressure 93/50. [place] [address] CONSULTATION Name: KIKI PIERCE Room: [address]#: [id number] Admission: 02/06/18 Attend Phys: David Herrera MD Discharge: Date of : 54 Report #: [id number] SKIN: Warm. There are no rashes. HEENT: He has got nasal cannula oxygen in place. NECK: Supple. LUNGS: Diminished breath sounds and does have some basilar crackles. HEART: Regular. He has a soft systolic murmur. ABDOMEN: Soft. There are no overt peritoneal signs. Mildly distended. GENITOURINARY AND RECTAL: Deferred. LABORATORY DATA: Urinalysis described above, greater than 25 white cells and 1-9 bacteria. CBC: White count of 29.8, H and H 9.4 and 28.8, platelets of 409. He does have a basophilia as well as a monocytosis. Electrolytes: Sodium 137, potassium 4.5, chloride 101, bicarbonate is 29, BUN and creatinine 49 and 1.2 and glucose of 117. LFTs are unremarkable. Total bilirubin of 1.1. Albumin of 2.3. Total protein 6.1, estimated GFR of 61. Lactic acid 1.0. PT of 10.0 and INR 1.0. ASSESSMENT: Early sepsis secondary to complicated genitourinary tract infection, probable pyelonephritis. In addition, he has longstanding issues with bilateral ischial decubitus ulcers and clinical radiographic evidence of chronic osteomyelitis. I think the former is probably the likely etiology in this setting. He does have a longstanding catheter that I believe has been changed recently. He has known evidence of multiple resistant organisms. We will continue therapy and adjust the gram-negative coverage. We will await results. Supportive measures including fluid resuscitation and pressors as required. Certainly it appears recent weeks to months he has deteriorated to a significant degree and need to consider whether it is reasonable to continue in this fashion, perhaps a candidate for hospice. <ELECTRONICALLY SIGNED> By: Jenaro Rangel MD 02/07/18 1258 1733 [id number] Rangel MD /nt
--- NOTE | 2018-02-07 14:55 | NUR ---
Pt admitted 02/06 with diagnosis of sepsis. Pt known to Case Mgt from previous admission. 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 Pt not always compliant with care, refusing to turn, etc. Pt's contact is his sister Madina. Case Viviana will continue to follow.
[2018-02-08] VITALS (15 sets, daily range): BP systolic 99–118; BP diastolic 46–59
[2018-02-08 04:50] LABS: ABSOLUTE LYMPHOCYTES 0.4 thou/uL (0.8-5.3); ABSOLUTE MONOCYTES 0.4 thou/uL (0.0-1.2); ABSOLUTE NEUTROPHILS 10.9 thou/uL (1.6-8.1); BASOPHILS 0.1 %; LYMPHOCYTES 3.4 %; MCH 25.3 pg (26.0-34.0); MCHC 32.5 g/dL (28.0-37.0); MCV 77.7 fL (80.0-100.0); MONOCYTES 3.8 %; MPV 7.1 fl. (7.2-11.1); NUCLEATED RBCS 0 /100WBC; POLYS 92.7 %; RBC 2.56 mil/uL (4.50-6.00); RDW-CV 23.1 % (10.5-14.5); WBC 11.7 thou/uL (4.0-11.0)
[2018-02-08 05:02] LABS: PLATELET COUNT* 273 thou/uL (150-400)
[2018-02-08 05:03] LABS: HEMATOCRIT 19.9 % (42.0-52.0); HEMOGLOBIN 6.5 gm/dL (14.0-18.0)
[2018-02-08 05:04] LABS: ALBUMIN 1.6 g/dL (3.4-5.0); CREATININE 0.7 mg/dL (0.6-1.3); TOTAL BILIRUBIN 0.4 mg/dL (<0.1-1.0); TOTAL PROTEIN 4.8 g/dL (6.4-8.2)
[2018-02-08 05:05] LABS: POTASSIUM 2.8 mmol/L (3.5-5.1)
--- NOTE | 2018-02-08 12:13 | NUR ---
CALLED CONNIE AT [facility] TO UPDATE HER ON PT'S CONDITION, LEFT MESSAGE ON HER VM. PLAN IS FOR PT TO RETURN TO [facility].
[2018-02-08 13:00] LABS: HEMATOCRIT 24.7 % (42.0-52.0); HEMOGLOBIN 8.1 gm/dL (14.0-18.0); MCH 26.2 pg (26.0-34.0); MCHC 32.6 g/dL (28.0-37.0); MCV 80.3 fL (80.0-100.0); MPV 7.3 fl. (7.2-11.1); RBC 3.08 mil/uL (4.50-6.00); RDW-CV 23.4 % (10.5-14.5); WBC 11.5 thou/uL (4.0-11.0)
[2018-02-08 13:17] LABS: ALBUMIN 1.8 g/dL (3.4-5.0); CALCIUM 7.2 mg/dL (8.5-10.1); CREATININE 0.7 mg/dL (0.6-1.3); MAGNESIUM 1.2 mg/dL (1.8-2.4); TOTAL BILIRUBIN 0.7 mg/dL (<0.1-1.0); TOTAL PROTEIN 5.1 g/dL (6.4-8.2)
[2018-02-08 13:19] LABS: POTASSIUM 2.5 mmol/L (3.5-5.1)
--- NOTE | 2018-02-08 14:30 | EKG ---
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
--- NOTE | 2018-02-08 15:52 | NUR ---
END OF SHIFT NOTE FOR 02/07/18. DURING THIS SHIFT WAS ABLE TO WEAN PT OFF LEVOPHED GTT. PT STILL REFUSING MEDICATIONS AND FREQUENT TURNS. REPORT GIVEN TO HEMA SO FOR HEALTH AND SAFETY MANAGER.
--- NOTE | 2018-02-08 16:49 | NUR ---
PT VSS AT THIS TIME, PT HAD A RUN OF WHAT APPEARED TO BE AFIB-CARDIOLOGY CONSULT CANCELLED AFTER DR MILES STATED IT WAS SINUS AND DISCONTINUED THE CONSULT AFTER FINDING OUT THE PT POTASSIUM WAS 2.5 AND WILL BE REPLACED-PT IS ON THE 2ND BAG OF 6 AT THIS TIME. PT HAS HAD MULTIPLE FORMED STOOLS AND HAD HIS WOUNDS REDRESSED DUE TO BEING SOILED. PT VANC TROUGH WAS NOT THERAPEUTIC AND PHARMACY MADE ADJUSTMENTS AND NEW DOSE WAS HUNG AND IS CURRENTLY INFUSING. PT HAS NOT REFUSED TURNS THIS SHIFT AND HAS ONLY REFUSED INSULIN AND CALCIUM THIS SHIFT. PT HAD A UNIT OF BLOOD TRANSFUSED THIS SHIFT WITH NO COMPLICATIONS NOTED. INFECTION CONTROL CONTACTED DR VICENTE REGARDING PT GOODEN, DR VICENTE STATED HE WAS TOLD THAT HIS GOODEN WAS CHANGED A WEEK AGO, BUT IF NOT IT NEEDED TO BE REPLACED. ATTEMPTED TO CALL HIS DETENTION TO VERIFY THAT THE GOODEN HAD BEEN REPLACED WITHIN THE WEEK WITH NO ANSWER. PT VERIFIED THAT HIS GOODEN WAS CHANGED RIGHT BEFORE HE ADMITTED TO THE HOSPITAL BY THE DETENTION. REPORT CALLED TO LUCIE ON AND SHE STATED SHE WOULD CALL ONCE THE ROOM WAS CLEANED. WILL SIGN OFF CARE ONCE TRANSFERED
--- NOTE | 2018-02-08 18:53 | NUR ---
PATIENT TRANSFERRED FROM ICU TO ROOM 312 AT THIS TIME. REPORT RECEIVED FROM SARAY YOUSSEF. DRESSINGS TO COCCYX CHANGED, BM NOTED AT THIS TIME. IVF INFUSING, POTASSIUM AND ABX INFUSING ORDERED. CALL LIGHT WITHIN REACH.
[2018-02-09 00:42] VITALS: BP 121/59
[2018-02-09 06:32] LABS: HEMATOCRIT 25.6 % (42.0-52.0); HEMOGLOBIN 8.6 gm/dL (14.0-18.0); MCH 26.5 pg (26.0-34.0); MCHC 33.5 g/dL (28.0-37.0); MCV 79.2 fL (80.0-100.0); RBC 3.24 mil/uL (4.50-6.00); RDW-CV 23.3 % (10.5-14.5); WBC 9.9 thou/uL (4.0-11.0)
[2018-02-09 07:18] LABS: ALBUMIN 1.9 g/dL (3.4-5.0); CALCIUM 7.4 mg/dL (8.5-10.1); CREATININE 0.5 mg/dL (0.6-1.3); POTASSIUM 3.3 mmol/L (3.5-5.1); TOTAL BILIRUBIN 0.7 mg/dL (<0.1-1.0); TOTAL PROTEIN 5.2 g/dL (6.4-8.2)
[2018-02-09 08:00] VITALS: BP 131/68
[2018-02-09 20:00] VITALS: BP 141/79
--- NOTE | 2018-02-09 20:02 | NUR ---
ASSUMED CARE THIS AM, PLACED ON LOW AIR LOSS MATTRESS, WOUNDS REDRESSED. A/O X 4, DENIES PAIN, REFUSES TO TURN/REPOSITION. ERIC IV ABT/FLUIDS WITOUT DIFF, CALL LIGHT IN REACH, PROGRESSING TOWARD GOALS, CONT POC.
[2018-02-09 23:24] LABS: MAGNESIUM 1.8 mg/dL (1.8-2.4)
--- NOTE | 2018-02-10 05:21 | NUR ---
PT AWAKE MOST OF SHIFT. ASSESSMENT DOCUMENTED. MEDS GIVEN PER E-MAR. IV PATENT, FLUIDS INFUSING. PAIN MEDS GIVEN PER E-MAR FOR RIGHT SHOULDER PAIN. PT REPOSITIONED A COUPLE TIMES THROUGH NIGHT, REFUSING MOST OF TURNS. DRESSING ON ISCHIAL TUBEROSITIES CHANGED THIS SHIFT. STARTED POTASSIUM REPLACEMENT THIS SHIFT. WILL CONTINUE WITH PLAN OF CARE.
[2018-02-10 16:19] VITALS: BP 133/74
[2018-02-10 19:30] VITALS: BP 132/70
--- NOTE | 2018-02-10 19:54 | NUR ---
RESUMED CARE THIS AM. PATIENT CONTINUES TO REFUSE TO REPOSITION FROM SIDE/SIDE. LEGS CONTRACTED, OFTEN REMOVES PILLOW FROM IN BETWEEN LEGS, REFUSING PILLOW BOOTS, EDUCATED ON PLACING SELF AT RISK FOR FURTHER BREAKDOWN. PHOTOS OF STAGE IV WOUNDS TO BILAT LOWER BUTTOCKS IN CHART. PATIENT REPORTS GOAL OF WALKING INDEPENDENTLY WITHIN THE YEAR. CONT POC.
[2018-02-11 04:39] LABS: HEMATOCRIT 26.8 % (42.0-52.0); HEMOGLOBIN 9.1 gm/dL (14.0-18.0); MCH 26.6 pg (26.0-34.0); MCV 78.2 fL (80.0-100.0); MPV 7.1 fl. (7.2-11.1); RBC 3.42 mil/uL (4.50-6.00); RDW-CV 22.8 % (10.5-14.5); WBC 8.3 thou/uL (4.0-11.0)
[2018-02-11 04:58] LABS: CALCIUM 7.3 mg/dL (8.5-10.1); CREATININE 0.5 mg/dL (0.6-1.3); POTASSIUM 3.8 mmol/L (3.5-5.1)
--- NOTE | 2018-02-11 05:42 | NUR ---
PT SLEPT ON AND OFF THIS SHIFT. ASSESSMENT DOCUMENTED. MEDS GIVEN PER E-MAR. IJ PATENT, FLUIDS INFUSING. PT REPORTS HAVING TREMORS. TYLENOL GIVEN PER E-MAR FOR DISCOMFORT. PT REPOSITIONED A FEW TIMES THIS SHIFT, REFUSING MOST REPOSITIONS. WILL CONTINUE WITH PLAN OF CARE.
[2018-02-11 08:00] VITALS: BP 138/74
--- NOTE | 2018-02-11 13:43 | NUR ---
LUCAS called and spoke with Alfred at [facility] at [phone]. LUCAS provided info of pt to dc today to [facility]. Alfred confirmed acceptance of pt back to [facility]. LUCAS faxed dc orders and med list to [phone]. Flora marin arranged by accepting facility for any time after 14:00 possibly 16:00. No other dc needs expressed.
[2018-02-11] MEDS ORDERED: AUGMENTIN 875-1 EACH PO (15:30)
[2018-02-11] MEDS ORDERED: DOXYCYCLINE 10100 MG PO (15:35)
[2018-02-11 15:52] VITALS: BP 138/74
== END 2018-02-11 16:30 | DRG 871 ==
LOC: M.ERS 14:05 → M.TBA-ER 15:12 → M.ICU 15:12 → M.3W 02-08 18:15
PROVIDERS: Family Medicine; ADMIT Internal Medicine
PROC: 05HN33Z Insertion of Infusion Device into Left Internal Jugular Vein, Percutaneous Approach (ICD-10-PCS; principal; 2018-02-06)
PROC: 30233N1 Transfusion of Nonautologous Red Blood Cells into Peripheral Vein, Percutaneous Approach (ICD-10-PCS; 2018-02-08)
DX: A41.9 Sepsis, unspecified organism (principal); L89.94 Pressure ulcer of unspecified site, stage 4; J96.01 Acute respiratory failure with hypoxia; J69.0 Pneumonitis due to inhalation of food and vomit; E43 Unspecified severe protein-calorie malnutrition; R65.21 Severe sepsis with septic shock; G82.20 Paraplegia, unspecified; M86.9 Osteomyelitis, unspecified; F17.210 Nicotine dependence, cigarettes, uncomplicated; I95.9 Hypotension, unspecified; G89.29 Other chronic pain; E83.42 Hypomagnesemia; I48.91 Unspecified atrial fibrillation; E87.6 Hypokalemia; I27.20 Pulmonary hypertension, unspecified; J44.9 Chronic obstructive pulmonary disease, unspecified; E11.51 Type 2 diabetes mellitus with diabetic peripheral angiopathy without gangrene; Z88.6 Allergy status to analgesic agent; Z88.2 Allergy status to sulfonamides; Z88.8 Allergy status to other drugs, medicaments and biological substances; Z79.4 Long term (current) use of insulin; Z28.21 Immunization not carried out because of patient refusal; Z68.20 Body mass index [BMI] 20.0-20.9, adult

== ENCOUNTER → 2018-03-19 | Outpatient (CLI) | payer OTHER, MEDICAID ==
[~2018-03-19] MED LIST changes: +DOXYCYCLINE 10100 MG PO
== END ==
LOC: M.WC 03-05 03:59
DX: E11.622 Type 2 diabetes mellitus with other skin ulcer (principal); L98.411 Non-pressure chronic ulcer of buttock limited to breakdown of skin; L89.314 Pressure ulcer of right buttock, stage 4; L89.324 Pressure ulcer of left buttock, stage 4; I87.2 Venous insufficiency (chronic) (peripheral); M19.90 Unspecified osteoarthritis, unspecified site; F17.200 Nicotine dependence, unspecified, uncomplicated

== ENCOUNTER 2019-04-09 09:32 | Emergency (ER) | payer OTHER, MEDICAID ==
[~2019-04-09] VITALS: Ht 177.8 cm; Wt 76.7 kg
[2019-04-09 10:29] VITALS: BP 119/64
== END 2019-04-09 10:32 | disposition home or self-care (01) ==
LOC: M.ERS 09:32
DX: K94.23 Gastrostomy malfunction (principal); F17.210 Nicotine dependence, cigarettes, uncomplicated; E11.9 Type 2 diabetes mellitus without complications; Z79.4 Long term (current) use of insulin; Z91.048 Other nonmedicinal substance allergy status; Z88.8 Allergy status to other drugs, medicaments and biological substances; Z88.2 Allergy status to sulfonamides

== ENCOUNTER 2019-07-18 11:03 | Inpatient (IN) | payer OTHER, MEDICAID ==
[~2019-07-18] VITALS: Ht 180.3 cm; Wt 73.0 kg
--- NOTE | ~2019-07-18 | PROC ---
[facility], [place] [address] [place] [address] PROCEDURE REPORT Name: KIKI PIERCE Room: [address] IN .R.#: [id number] Admission: 07/18/19 Attend Phys: Julito Ren MD Discharge: 07/30/19 Date of : 54 Report #: [id number] THIS REPORT FOR: //name// For GI report, please see GI report in Perceptive 7 content. By: [facility]4Medical Records Staff [facility] /[place]
[2019-07-18 11:05] VITALS: BP 101/65
[2019-07-18 11:43] LABS: ABSOLUTE BASOPHILS 0.1 thou/uL (0.0-0.2); ABSOLUTE EOSINOPHILS 0.1 thou/uL (0.0-0.7); ABSOLUTE LYMPHOCYTES 1.1 thou/uL (0.8-5.3); ABSOLUTE MONOCYTES 1.2 thou/uL (0.0-1.2); ABSOLUTE NEUTROPHILS 11.5 thou/uL (1.6-8.1); BASOPHILS 0.5 %; EOSINOPHILS 0.8 %; HEMATOCRIT 21.9 % (42.0-52.0); LYMPHOCYTES 8.2 %; MCH 23.9 pg (26.0-34.0); MCHC 31.7 g/dL (28.0-37.0); MCV 75.3 fL (80.0-100.0); MONOCYTES 8.4 %; MPV 6.9 fl. (7.2-11.1); NUCLEATED RBCS 0 /100WBC; PLATELET COUNT* 841 thou/uL (150-400); POLYS 82.1 %; RDW-CV 19.1 % (10.5-14.5); WBC 13.9 thou/uL (4.0-11.0)
[2019-07-18 11:47] LABS: HEMOGLOBIN 6.9 gm/dL (14.0-18.0)
[2019-07-18 11:57] LABS: CALCIUM 8.2 mg/dL (8.5-10.1); CREATININE 1.1 mg/dL (0.6-1.3); POTASSIUM 4.1 mmol/L (3.5-5.1)
[2019-07-18 12:02] LABS: ALBUMIN 1.7 g/dL (3.4-5.0); TOTAL BILIRUBIN 0.3 mg/dL (<0.1-1.0); TOTAL PROTEIN 7.8 g/dL (6.4-8.2)
[2019-07-18 12:39] VITALS: BP 100/54; BP 104/64; BP 106/56
[2019-07-18 13:42] LABS: APTT 32.2 Seconds (25.0-31.3); INR 1.1; PROTIME 11.3 Seconds (9.20-11.50)
--- NOTE | 2019-07-18 14:56 | NUR ---
SPEECH AND LANGUAGE ASSISTANT JENNIFER WAS AT PTS BEDSIDE AND PERFORMED ASSESSMENT OF ALL WOUNDS. ASSISTED WITH CHANGING ALL DRESSINGS AND POSITIONING OF PT. PT TOLERATED ALL PROCEDURES WELL.
--- NOTE | 2019-07-18 16:11 | NUR ---
WOUND CARE NOTE: CONSULT RECEIVED FOR SACRAL WOUND. PATIENT PRESENTS WITH A STAGE 4 PRESSURE ULCER TO THE LEFT BUTTOCK. MUSCLE PRESENT IN WOUND BED. WOUND MEASURES 3.6X5.3X2.5 WITH UNDERMINING CIRCUMFIRENTIALLY 3CM. WOUND BED IS RED, MOIST, NON-GRANULAR. CHLOE-WOUND INFLAMMED, APPEARS THAT HE HAS BEEN SCRATCHING AREA TOO. THIS INFLAMMATION/PARTIAL THICKNESS BREAKDOWN IS THE ENTIRETY OF BILATERAL BUTTOCKS AND SCROTUM. POSSIBLY A FUNGAL COMPONENT TOO. ENTIRE BUTTOCKS/SACRUM/SCROTUM WAS CLEANSED WITH SOAP AND WATER, PATTED DRY. PACKED AQUACEL AG INTO THE ULCER, COVERED WITH A FOAM AND SECURED WITH A TEGADERM. MEDIALLY TO THIS ULCERATION ARE TWO MORE ULCERATIONS IN A CREVICE. MEDIAL MOST WOUND MEASURES 2X0.5X0.1 AND THE LATERAL MOST ONE MEASURES 1X0.1X0.1. AFTER CLEANSING WITH SOAP AND WATER, APPLIED AQUACEL AG AND SECURED WITH A TEGADERM. LEFT, MEDIAL LOWER LEG: SKIN TEAR/ABRASION MEASURING 2.2X1.5X0.1. WOUND IS PINK, MOIST, DRAINING SMALL AMOUNTS OF SEROUS DRAINAGE. CHLOE-WOUND WITH ECCHYMOSIS. PATIENT STATES THIS OCCURED WHEN HIS LEGS RUBBED TOGETHER AFTER HIS BOOTS WERE LEFT OFF. AREA WAS CLEANSED WITH WOUND CLEANSER, PATTED DRY. APPLIED AQUACEL AG AND SECURED WITH A BORDERED FOAM. SACRUM: SMALL ULCERATION, STAGE 3 MEASURING 0.5X0.4X0.1. PALE, YELLOW WOUND BED. CLEANSED WITH WOUND CLEANSER, PATTED DRY. APPLIED MARATHON AND ALLOWED TO DRY. RIGHT MEDIAL HEEL: UNSTAGEABLE PRESSURE ULCER WITH ADHERENT, YELLOW ESCHAR IN WOUND BED. CLEANSED WITH WOUND CLEANSER, PATTED DRY. WOUND MEASURES 1.5X1.3X0.2. APPLIED AQUACEL AG AND COVERED WITH A BORDERED FOAM. LEFT 5TH METATARSAL HEAD: BLANCHABLE REDNESS, INTACT SKIN. ERYTHEMA MEASURES 1.5X1 LEFT LATERAL MALLEOLUS: STAGE 4 PRESSURE ULCER. WOUND BED IS PINK, MOIST, GRANULAR. APPEARS TO BE HEALING. TENDON IS PRESENT IN WOUND BED. CHLOE-WOUND WITH NEW EPITHELIUM. WOUND MEASURES 2.5X3.3X0.2. DISTALLY, THERE IS DISCOLORATION, BELIEVE THERE MAY HAVE BEEN A WOUND HERE PREVIOUSLY, BUT HAS HEALED. APPLIED SKIN PREP OVER THIS AREA. APPLIED AQUACEL AG OVER ULCERATION AND COVERED WITH BORDERED FOAM. ABDOMINAL TUBE SITE: DRAINAGE ASSOCIATED DERMATITIS. ERYTHEMA NOTED SURROUNDING THE ABDOMINAL TUBE. APPROXIMATELY 1CM OF ERYTHEMA NOTED. CLEANSED AREA WELL. APPLIED MARATHON TO GIVE THE SKIN A CHANCE TO HEAL. RECOMMEND TURN Q2 HOURS LOW AIR LOSS MATTRESS-ON ORDER BOOTS TO BILATERAL FEET Z-GUARD BARRIER OINTMENT TO BILATERAL BUTTOCKS/SCROTUM POSSIBLY NEED ANTIFUNGAL COVERAGE? ENCOURAGE GOOD NUTRTION/HYDRATION WILL AWAIT SURGEON'S INPUT REGARDING LEFT BUTTOCK ULCERATION
[2019-07-18 16:48] VITALS: BP 109/61
[2019-07-18 17:29] VITALS: BP 102/63
--- NOTE | 2019-07-18 17:52 | NUR ---
PT ADMITTED WITH ULCERS TO LEGS BILAT AND COCCYX. PT ALERT AND ORIENTED. PT ON 2 LITERS, HAS O2 HOME NEEDS 2 LITERS. HEART RATE REGULAR, PULSES 2+. LUNG CLEAR. PT PARAPLEGIA. WOUNDS DRESSED AND PICTURES TAKEN BY WOUND CARE NURSE. NEW BOOTS GIVEN TO PT. Q2 TURNS ON LEFT SIDE CURRENTLY. PT HAS CHRONIC GOODEN. PEG TUBE MALFUNCTIONED. NO DIET ORDERED. PT HAS LT FA IV WITH NS AT 100. FALL RISK PRECAUTIONS IN PLACE. HOURLY ROUNDING COMPLETED. WILL CONTINUE TO MONITOR.
--- NOTE | 2019-07-18 18:18 | NUR ---
PT REMAINED ALERT AND ORIENTED. PT RESTING IN BED. PT DENIES ANY PAIN AT THIS TIME. DIET ORDERED. FALL RISK PRECAUTIONS IN PLACE. HOURLY ROUNDING COMPLETED. WILL CONTINUE TO MONITOR.
[2019-07-18 18:42] LABS: HEMATOCRIT 25.8 % (42.0-52.0); HEMOGLOBIN 8.2 gm/dL (14.0-18.0)
[2019-07-18 21:29] VITALS: BP 96/61
[2019-07-19 04:04] LABS: ABSOLUTE BASOPHILS 0.1 thou/uL (0.0-0.2); ABSOLUTE EOSINOPHILS 0.2 thou/uL (0.0-0.7); ABSOLUTE LYMPHOCYTES 1.2 thou/uL (0.8-5.3); ABSOLUTE MONOCYTES 1.5 thou/uL (0.0-1.2); ABSOLUTE NEUTROPHILS 11.3 thou/uL (1.6-8.1); BASOPHILS 0.4 %; EOSINOPHILS 1.5 %; HEMATOCRIT 23.9 % (42.0-52.0); HEMOGLOBIN 7.5 gm/dL (14.0-18.0); LYMPHOCYTES 8.6 %; MCH 23.9 pg (26.0-34.0); MCHC 31.3 g/dL (28.0-37.0); MCV 76.2 fL (80.0-100.0); MONOCYTES 10.5 %; NUCLEATED RBCS 0 /100WBC; PLATELET COUNT* 846 thou/uL (150-400); RBC 3.14 mil/uL (4.50-6.00); RDW-CV 18.4 % (10.5-14.5); WBC 14.3 thou/uL (4.0-11.0)
[2019-07-19 04:15] LABS: CALCIUM 8.4 mg/dL (8.5-10.1); CREATININE 0.9 mg/dL (0.6-1.3); POTASSIUM 3.7 mmol/L (3.5-5.1)
[2019-07-19 04:18] LABS: ALBUMIN 1.7 g/dL (3.4-5.0); MAGNESIUM 1.8 mg/dL (1.8-2.4); TOTAL BILIRUBIN 0.5 mg/dL (<0.1-1.0); TOTAL PROTEIN 7.6 g/dL (6.4-8.2)
[2019-07-19 04:22] LABS: PREALBUMIN 13.6 mg/dL (18.0-35.7)
--- NOTE | 2019-07-19 05:25 | NUR ---
PATIENT REQUESTED PAIN MEDS AT BEGINNING OF SHIFT. HE WAS TURNED Q2 RO RELIEVE PAIN OFF HIS BACK AND LEGS. ATTEMPTING TO HAVE A BM TOOK A PRN DULCOLAX. WOUND NURSE SAW SUNDAY, WOUNDS CHECKED FREQUENTLY THROUGH THE SHIFT. AN AIR BED WAS DELIVERED TO HIM HE REFUSED IT. HE IS ABLE TO TAKE PILLS IF CRUSHED ON SPOON FOLLOWED BY SIPS OF WATER. PRESSURE BOOTS STILL ON AND PILLOWS USED TO RELIEVE PRESSURE. WILL CONTINUE TO MONITOR.
[2019-07-19 08:30] VITALS: BP 102/49
--- NOTE | 2019-07-19 17:05 | NUR ---
PATIENT ALERT AND ORIENTED X 4. VITAL SIGNS STABLE ON 2L O2 NASAL CANULA. AFEBRILE. GOODEN DRAINING DEPENDENTLY. IV PATENT AND SALINE LOCKED. PATIENT TURNED EVERY TWO HOURS. WOUNDS CHECKED THROUGHOUT THE SHIFT. CLEAN, DRY, AND INTACT. TAKES PILLS CRUSHED ON SPOON WITH SIPS OF WATER. PRESSURE BOOTS IN PLACE BILATERALLY TO FEET. HOURLY ROUNDS MAINTAINED THROUGHOUT THE SHIFT. CALL LIGHT WITHIN REACH. NURSING WILL CONTINUE TO MONITOR.
--- NOTE | 2019-07-19 19:16 | NUR ---
WENT IN TO CHANGE PATIENT'S WOUND DRESSINGS ON BOTTOM. PATIENT REFUSED. DRESSINGS WERE SLIGHTLY SATURATED AND BUNCHED UP. WILL PASS ALONG TO KITCHEN BATH DESIGNER.
--- NOTE | 2019-07-19 19:24 | NUR ---
SPECIALTY BED WAS DELIVERED ON 07/18/19 AFTER 2100. PATIENT REFUSED THE BED DID NOT WANT IT SAID HE DID NOT LIKE IT.
[2019-07-19 19:49] VITALS: BP 84/47
[2019-07-20 03:56] LABS: HEMATOCRIT 23.1 % (42.0-52.0); HEMOGLOBIN 7.2 gm/dL (14.0-18.0); MCH 24.1 pg (26.0-34.0); MCHC 31.2 g/dL (28.0-37.0); MCV 77.1 fL (80.0-100.0); RBC 2.99 mil/uL (4.50-6.00); WBC 11.9 thou/uL (4.0-11.0)
[2019-07-20 04:17] LABS: CALCIUM 8.2 mg/dL (8.5-10.1); CREATININE 0.8 mg/dL (0.6-1.3); MAGNESIUM 1.5 mg/dL (1.8-2.4); POTASSIUM 3.7 mmol/L (3.5-5.1)
--- NOTE | 2019-07-20 05:38 | NUR ---
PATIENT REPORTED PAIN DURING SHIFT 05/07 GAVE OXY IR REQUESTED AT 0430 AND 2200. PACKED AND PUT ON NEW DRESSING ON LEFT BUTTOCKS WOUND - CLEANED WITH WOUND CLEANSER. HE HAD A SMALL BM DURING NIGHT. CHANGED OUT THE PADS UNDER TO KEEP CLEAN AND DRY. HE IS STILL TAKING HIS MEDS CRUSHED WITH WATER TO DRINK. HE WAS TURNED Q2. ABLE TO EAT A SMALL AMOUNT OF FOOD AND DRANK PLENTY OF WATER. WILL CONTINUE TO MONITOR.
[2019-07-20 15:57] VITALS: BP 112/45
--- NOTE | 2019-07-20 17:45 | NUR ---
PATIENT ALERT AND ORIENTED X 4. VITAL SIGNS STABLE ON 2L NASAL CANULA. GOODEN DRAINING DEPENDENTLY. IV PATENT AND SALINE LOCKED. PATIENT TURNED EVERY TWO HOURS. WOUNDS CHECKED THROUGHOUT THE SHIFT. DRESSINGS CHANGED. CLEAN/DRY/INTACT. TAKES PILLS CRUSHED ON SPOON WITH APPLESAUCE. CONTINUOUS TUBE FEEDING RUNNING THROUGH PEG TUBE. PRESSURE BOOTS IN PLACE BILATERALLY TO FEET. HOURLY ROUNDS MAINTAINED THROUGHOUT THE SHIFT. CALL LIGHT WITHIN REACH. NURSING WILL CONTINUE TO MONITOR.
[2019-07-20 20:57] VITALS: BP 105/58
--- NOTE | 2019-07-21 05:09 | NUR ---
PATIENT HAS CONTINUOUS FEEDING 40 ML/HR THROUGHOUT SHIFT. PEG TUBE FLUSHED WITH 50 ML WATER GOOD FLOW. HE SEEMED TO HAVE SOME CONFUSION LAST NIGHT ABOUT PLACEMENT OF OBJECTS AND LIGHTING. HE WAS REPOSITIONED OFTEN AND REORIENTED OFTEN BY STAFF. HE HAD SOME CONCERNS ABOUT UPCOMING PROCEDURES AND WE WENT OVER THOSE TO ENSURE HE UNDERSTOOD. HE IS TAKING HIS MEDS CRUSHED IN APPLESAUCE AND DRINKING PLENTY OF WATER. PLANS FOR WOUND VAC PLACEMENT TODAY 07/21 FOR EVENTUAL BOWEL PREP FOR EGD/COLONOSCOPY ON SUNDAY OR SUNDAY. WILL CONTINUE TO MONITOR.
[2019-07-21 10:00] VITALS: BP 118/71
--- NOTE | 2019-07-21 12:17 | NUR ---
WOUND CARE NOTE: APPLICATION OF WOUND VAC. NEW CONSULT RECEIVED FOR WOUND VAC PLACEMENT TO ULCERATION ON THE LEFT BUTTOCK. STAGE 4 PRESSURE ULCER, SEE MEASUREMENTS FROM ASSESSMENT 07/18/19. CHLOE-WOUND IS IMPROVED, MUCH LESS RED THAN SUNDAY. HOWEVER, TO THE SACRUM THERE IS A STAGE 2 PRESSURE ULCER NOW MEASURING 6.5X3.5X0.1. MOIST, RED WOUND BED. CLEANSED WITH WOUND CLEANSER, APPLIED Z-GUARD. AFTER CLEANSING THE STAGE 4 PRESSURE ULCER. CUT BLACK FOAM TO FIT INTO WOUND BED 2 PIECES APPLIED. SKIN PREPPED. DRAPED. BRIDGED TO OFFLOAD TO THE LEFT THIGH. GOOD SEAL OBTAINED. 125MMHG, HIGH, CONTINUOUS. PATIENT TOLERATED DRESSING CHANGE WELL. HAS CHRONIC PAIN IN NECK AND LEFT LEG. STRESSED THE IMPORTANCE TO PATIENT ON TURNING AND KEEPING OFF AREAS, STATES HE HAS BEEN, BUT EDUCATED THAT HE HAS A NEW WOUND ON HIS BOTTOM. PATIENT ALLOWED US TO TURN HIM TO THE RIGHT SIDE WITH PILLOWS, ONLY 15 DEGREES THOUGH. EDUCATED PATIENT ON IMPORTANCE OF USING THE LOW AIR LOSS MATTRESS, PATIENT STATES HE WANTS HIS BED FROM HIS FACILITY. EDUCATED PATIENT THAT WE NEED TO USE OURS AND A P500 IS ON ORDER, WHICH IS SLIGHTLY DIFFERENT THAN THE ONE HE TYPICALLY GETS WHEN HERE. CLEANSED G TUBE SITE AND APPLIED Z GUARD OVER AREA. RECOMMEND TURN Q2 HOURS-KEEP OFF WOUNDS-SIDE TO SIDE ONLY UNLESS EATING LIMIT LAYERS OF LINEN UNDER PATIENT Z-GUARD BARRIER OINTMENT TO SACRUM/BUTTOCKS/SCROTUM AND AROUND GTUBE SITE ENCOURAGE GOOD NUTRTION/HYDRATION TIGHT BLOOD GLUCOSE CONTROL EDUCATION FOR OFFLOADING AND NUTRTION
--- NOTE | 2019-07-21 14:44 | NUR ---
PATIENT TRANSFERRED ONTO INFUSION LOW AIR LOSS MATTRESS.
--- NOTE | 2019-07-21 16:36 | NUR ---
SW completed initial assessment. Pt with wound care this morning. Pt lives at [facility] and has needed DME, tube feeds. Pt to have wound vac today; SW to discuss with [facility] about wound vac needs. Pt expected to have procedure Wed or according to chart. SW to continue to follow to assist with safe dc planning.
[2019-07-21 17:01] VITALS: BP 110/47
--- NOTE | 2019-07-21 17:41 | NUR ---
PATIENT ALERT AND ORIENTED X 4. VITAL SIGNS STABLE ON 2L O2 NASAL CANULA. GOODEN DRAINING DEPENDENTLY. IV PATENT AND SALINE LOCKED. PAIN BEING MANAGED WITH PO MEDICATION. DENIES NAUSEA. WOUND VAC PLACED TO LEFT BUTTOCK WOUND. DRAINING APPROPRIATELY. CONTINUOUS TUBE FEEDING RUNNING THROUGH PEG TUBE. FLUSHED PEG TUBE WITH STERILE WATER. WOUND DRESSINGS TO BUTTOCKS CHANGED WITH WOUND NURSE. CLEAN/DRY/INTACT. TAKING MEDS CRUSHED IN APPLESAUCE, PER PATIENT REQUEST. BOWEL PREP STARTED. PRESSURE BOOTS IN PLACE TO FEET BILATERALLY. PATIENT TURNED AND REPOSITIONED EVERY TWO HOURS. HOURLY ROUNDS MAINTAINED THROUGHOUT THE SHIFT. CALL LIGHT WITHIN REACH. NURSING WILL CONTINUE TO MONITOR.
[2019-07-21 21:31] VITALS: BP 105/60
[2019-07-22] VITALS: BP 99/52
[2019-07-22 04:17] LABS: CALCIUM 8.6 mg/dL (8.5-10.1); CREATININE 0.9 mg/dL (0.6-1.3); MAGNESIUM 1.6 mg/dL (1.8-2.4); POTASSIUM 3.7 mmol/L (3.5-5.1)
[2019-07-22 04:37] LABS: HEMATOCRIT 25.6 % (42.0-52.0); HEMOGLOBIN 8.1 gm/dL (14.0-18.0); MCH 24.3 pg (26.0-34.0); MCHC 31.5 g/dL (28.0-37.0); MCV 77.3 fL (80.0-100.0); MPV 7.3 fl. (7.2-11.1); RBC 3.31 mil/uL (4.50-6.00); WBC 18.8 thou/uL (4.0-11.0)
--- NOTE | 2019-07-22 05:18 | NUR ---
TURNED PATIENT ON SIDE EVERY 2 HOURS AND CHANGED LINENS AND KEPT PADDING UNDERNEATH DRY. HE HAD SMALL BMS ALL THROUGH SHIFT VERY FORMED AND STICKY. BARRIER CREAM WAS APPLIED AFTER EACH CLEAN UP. STOPPED FEEDING TUBE FOR BOWEL PREP. DILUTED GO LYTELY WITH STERILE WATER AND ADMINISTERED INTO G-TUBE 120MLS EVERY 90 MINUTES. TOTAL 840 MLS. STOMACH WAS TIGHT AND DISTENDED. NOT MUCH BOWEL OUTPUT THROUGH SHIFT. HE DID NOT REQUEST ANY PAIN MEDICINE BUT I GAVE HIM TYLENOL FOR A SLIGHT FEVER. CONTINUE BOWEL PREP FOR POSSIBLE EGD/COLONOSCOPY SUNDAY. WOUNDS WERE KEPT DRY AND VAC FUNCTIONING WELL. WILL CONTINUE TO MONITOR.
--- NOTE | 2019-07-22 15:11 | NUR ---
ASSESSMENT COMPLETE. PT IS CONFUSED AND HAS HALLUCINATIONS, ORIENTED TO SELF. PT IS Q2 TURN, INCONT OF STOOL. GOODEN IN PLACE. WOUND CARE DONE ORDERED. WOUND VAC IN PLACE. ACCU CHECK ACHS. BOWEL PREP CONTINUED THROUGHOUT DAY WITH GOLYTELY AND DULCOLAX ORDERED. DR ZAPATA NOTIFIED OF LEAKING PEG TUBE, PROVIDER ORDERED TO CONTINUE PREP WITH PEG TUBE. DR VICENTE CONSULTED, STARTED NEW ABX. IV IN RIGHT FA INFILTRATED, ELEVATED ON PILLOW, WRAPPED IN WARM BLANKET. PT HAS FLUIDS INFUSING IN LEFT FA. PT HAS FEVER, TACHY HEART RATE IN LOW 100'S. SEPSIS SCREEN NEGATIVE THIS MORNING. SEE ASSESSMENT AND VITALS FOR OTHER DETAILS. CALL LIGHT WITHIN REACH, WILL CONTINUE PLAN OF CARE
[2019-07-22 16:02] VITALS: BP 107/52
--- NOTE | 2019-07-22 16:58 | EKG ---
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 Attendant: : 1950 Requested By: Amelia Fink Order Number: [id number] Reading MD: Tavo Berry Measurements Intervals [place] Rate: 103 P: 68 TX: 163 QRS: -61 QRSD: 109 T: 84 QT: 337 QTc: 441 Interpretive Statements Sinus tachycardia Abnormal R-wave progression, late transition Inferior infarct, old Compared to ECG 02/08/2018 12:53:26 Myocardial infarct finding now present Left anterior fascicular block no longer present Electronically Signed On 07-22-2019 16:58:01 CDT by Tavo Berry [email or web address] <ELECTRONICALLY SIGNED> By: Tavo Berry MD, FACC 07/22/19 1658 1501 1501 Tavo Berry MD, [facility] /EPI
--- NOTE | 2019-07-22 17:16 | NUR ---
PT ALERT TO SELF. PT RESTING IN BED. Q2 TURNS. BOWEL PREP GIVEN ORDERED. I AGREE WITH MORNING ASSESSMENT. FALL RISK PRECAUTIONS IN PLACE. HOURLY ROUNDING COMPLETED. WILL CONTINUE TO MONITOR.
[2019-07-22 20:50] VITALS: BP 115/55
--- NOTE | 2019-07-23 04:34 | NUR ---
PATIENT ALERT AND ORIENTED X 2-3. NO OBVIOUS HALLUCINATIONS. TALKS IN CIRCLES. SOME MOMENTS OF LUCIDITY. BOWEL PREP IN PROGRESS. HAS HAD MULTPLE VERY LARGE STOOLS, NOW WATERY BUT NOT CLEAR OF THIS WRITING. HAS COMPLETED MOST OF 4L GO-LYTE PER PEG. TURNED Q2H. PRESSURE BOOTS ON BILATERALLY. DRESSINGS, OINTMENTS, WOUND VAC IN PLACE. GOODEN PATENT TO DEPENDENT DRAINAGE. VITAL SIGNS STABLE. MESSAGE LEFT FOR CM REGARDING SIGNING OF PERMITS TODAY AND POSSIBLE GUARDIAN OR DPOA IF NEEDED. WILL BE OFFICIALLY NPO AT 0600 [facility] ADMINISTRATION. CONTINUE TO MONITOR.
--- NOTE | 2019-07-23 06:38 | NUR ---
X-LARGE WATERY YELLOW STOOL AT THIS TIME MORE CONSISTANT WITH EFFECTIVE PREP.
[2019-07-23 07:30] VITALS: BP 106/52
[2019-07-23 07:34] VITALS: BP 115/55
[2019-07-23 08:09] VITALS: BP 121/67
[2019-07-23 08:10] LABS: URINE BILIRUBIN NEGATIVE (Negative); URINE BLOOD 1+ (Negative); URINE CLARITY CLEAR; URINE COLOR YELLOW; URINE GLUCOSE-RANDOM NEGATIVE (Negative); URINE KETONES NEGATIVE (Negative); URINE NITRITE-REFLEX NEGATIVE (Negative); URINE PROTEIN 1+ (Negative); URINE UROBILINOGEN 0.2 E.U./dl (0.2-1.0)
[2019-07-23 08:13] LABS: URINE LEUKOCYTES-REFLEX 3+ (Negative)
[2019-07-23 08:17] LABS: CASTS None Seen /LPF (None Seen); CRYSTALS None Seen /LPF (None Seen); MUCUS 0-3 Light strn/LPF (None Seen); SQUAMOUS 0-3 Few /LPF (0-3); URINE RBC 3-10 Few /HPF (0-2); URINE WBC-REFLEX >25 Many /HPF (0-5)
--- NOTE | 2019-07-23 10:29 | NUR ---
LEFT MESSAGE FOR HEAVY DUTY PRESS OPERATOR AT [facility] [phone] TO SEE IF THEY HAVE A DPOA ON FILE FOR PT.
--- NOTE | 2019-07-23 12:15 | CON ---
[address] [address] CONSULTATION Name: KARIKIKI Abhi Room: [address] IN M.R.#: [id number] Admission: 07/18/19 Attend Phys: Julito Ren MD Discharge: Date of : 54 Report #: [id number] THIS REPORT FOR: //name// CC: Julito Dexterh [facility] DATE OF SERVICE: 07/22/2019 INFECTIOUS DISEASE CONSULTATION ATTENDING PHYSICIAN: Julito Ren MD REASON FOR EVALUATION: Nosocomial related fevers, suspected early sepsis. HISTORY OF PRESENT ILLNESS: Chart reviewed, patient examined. This is a 68-year-old man I am familiar with. I have not seen in a couple of years, who has extensive medical history, has severe wasting syndrome. He is paraplegic with severe neuropathy. He has got multiple decubitus ulcers. He is [facility] by [facility]. He is completely disabled, has a longstanding enteral feeding tube as well as a chronic indwelling Randle, who presented via the Emergency Room after being referred there from the [facility] and was found to have severe anemia, nonfunctioning enteral feeding tube, is evaluated and the tube replaced on the . He has been undergoing aggressive care of his wound as well as now optimize his nutritional status. Subsequently, developed fevers over the course of last evening and at night to 101.1, had been empirically on antimicrobials with doxycycline. Cultures have been collected from the blood. Urinalysis is pending. Chest x-ray has been ordered as well. He is moderately encephalopathic at this point. He is agitated, unable to give too many details of his history. ALLERGIES: LISTED SULFA, LISINOPRIL AND HYDROCODONE. PAST MEDICAL HISTORY: As noted above, diabetes mellitus type 2 with polyneuropathy, paraplegia, pheochromocytoma, chronic undernourished. He has got enteral feeding tube. previous spinal surgeries, paraplegic, chronic anemia. CURRENT MEDICATIONS: Include Augmentin, pantoprazole, gabapentin, doxycycline, ascorbic acid, terazosin, insulin lispro, ipratropium and albuterol inhaler, p.r.n. analgesics and antiemetics. SOCIAL HISTORY: No illicit drug use. Smokes cigarettes, occasional ethanol. FAMILY HISTORY: Noncontributory. REVIEW OF SYSTEMS: [place] [address] CONSULTATION Name: KIKI PIERCE Abhi Room: [address]#: [id number] Admission: 07/18/19 Attend Phys: Julito Ren MD Discharge: Date of : 54 Report #: [id number] PHYSICAL EXAMINATION: GENERAL: He appears chronically ill, undernourished. He is quite cachectic. He is confused and agitated. VITAL SIGNS: Temperature 98.9, T-max overnight 101.1, pulse 97, respirations 20, blood pressure 99/52. SKIN: Warm, dry. HEENT: Unkempt, normocephalic. Extraocular muscles intact. He does make eye contact briefly. NECK: Supple. LUNGS: Diminished breath sounds. Few scattered crackles. HEART: Borderline tachycardic, regular. I do not appreciate murmur. ABDOMEN: He has got a feeding tube in place. There is significant ulceration around the margin. It is moderate degree of inflammation, drainage. ABDOMEN: Overall there are no peritoneal signs. Randle catheter. GENITOURINARY: Deferred. RECTAL: Deferred. LABORATORY DATA: Lactic acid 1.1. CBC: White count of 18.8, H and H 8.1 and 25.6, MCV of 77.3. Electrolytes: Sodium 142, potassium 3.7, chloride 105, bicarbonate is 30, anion gap of 7, BUN and creatinine 19 and 0.9, estimated GFR 84. Sed rate of 134. Liver functions collected on the . Albumin of 1.7, total protein 7.6. LFTs unremarkable. ASSESSMENT: Nosocomial related fevers, certainly at high risk for infectious complications. In addition, other types of complications, chronic wounds, utilizing wound VAC at this point. We will continue empiric therapy, we will broaden it, deliver apparently, and await culture results. His prognosis remains quite guarded. <ELECTRONICALLY SIGNED> By: Jenaro Rangel MD 07/23/19 1215 0936 [id number] Rangel MD /nt
--- NOTE | 2019-07-23 16:59 | NUR ---
PT IS A&Ox PERSON, AND AT TIMES SITUATION. PT HAS HAD TIMES DURING SHIFT WHERE HE HAS HAD VISUAL AND AUDITORY HALLUCINATIONS. DENIED PAIN. WOUND VAC DRESSING CHANGED BY WOUND CARE. PT IS INCONTINENT OF BOWEL. HAS GOODEN IN PLACE, PATENT. IV PATENT. HAS BEEN NPO DURING SHIFT FOR GI PROCEDURE. BOOTS IN PLACE. SPECIALTY BED. OTHER WOUND DRESSINGS IN PLACE, C/D/I. FALL PRECAUTIONS IN PLACE. PT IS IN PRE OP NOW, WILL UPDATE UPON RETURN.
[2019-07-23 20:45] VITALS: BP 114/60
[2019-07-24] VITALS: BP 117/65
[2019-07-24 04:00] VITALS: BP 123/62
[2019-07-24 04:36] LABS: CALCIUM 7.7 mg/dL (8.5-10.1); CREATININE 0.7 mg/dL (0.6-1.3); MAGNESIUM 1.3 mg/dL (1.8-2.4)
[2019-07-24 04:38] LABS: POTASSIUM 2.7 mmol/L (3.5-5.1)
--- NOTE | 2019-07-24 07:30 | NUR ---
PATIENT HAS HAD IMPROVED ORIENTATION AND SIGNIFICANT IMPROVED CONVERSATIONAL SKILLS OVERNIGHT. REMAINS ON PRESSURE REDUCING MATTRESS WITH ATTEMPTED Q2H TURNS. DRESSING TO OLD GTUBE SITE CHANGED EARLY AM. OLD DRESSINGS SATURATED WITH CLEAR TO YELLOW DRAINAGE AND SOME CURDLED APPEARING BROWN DRAINAGE. SITE CONTINUES TO BUBBLE OUT THIN DRAINAGE WITH DRESSING CHANGE. BLOOD GLUCOSE DROPPED AT MIDNIGHT CHECK. IV GLUCOSE PER ORDERS WITH RETURN TO NORMAL LIMITS. AM LAB WITH CRITICAL POTASSIUM AND LOW MAGNESIUM. REPLACEMENT IN PROGRESS. DR. GALLEGO UPDATED ON PATIENT STATUS THIS AM WITH NEW ORDERS BEING ENTERED. FOR OTHER ASSESSMENTS RELATED TO WOUNDS SEE PCI. VITAL SIGNS STABLE. CONTINUE TO MONITOR.
[2019-07-24 09:40] VITALS: BP 127/58
--- NOTE | 2019-07-24 10:38 | NUR ---
WOUND CARE NOTE: REQUEST TO SEE FOR OLD TUBE SITE PATIENT HAD REMOVAL OF FEEDING TUBE AND WAS REPLACED DISTALLY. THE OLD G-TUBE SITE WITH MACERATION AND INFLAMMATION DUE TO GASTRIC DRAINAGE. AREA WAS CLEANSED WELL. APPLIED Z-GUARD BARRIER OINTMENT AND COVERED WITH ABD. RECOMMEND CONTINUING THIS BID AND PRN. WILL REASSESS SITE TOMORROW TO DETERMINE IF IT IS RESPONDING APPROPRIATELY.
--- NOTE | 2019-07-24 14:07 | NUR ---
MICHELLE LAIRD FAXED COPY OF DPOA FOR HEALTH CARE DECISIONS TO UNIT. PLACED ON CHART. LISTS PAT RAYO AGENT-[phone] AND ALTERNATE AGENT,URIEL RAYORVZROM-[phone]
[2019-07-24 16:00] VITALS: BP 128/59
--- NOTE | 2019-07-24 19:00 | NUR ---
PATIENT ALERT AND ORIENTED THIS AM, BECAME MORE CONFUSED LATER THIS AFTERNOON, HALLUCINATING SOMEONE WAS IN THE CORNER AND PATIENT WAS SCOLDING THEM. PATIENT NOTED DOES NOT LIKE TO BE TOUCHED. NOTED WHINCING AND GRIMICING W/ THE SLIGHTEST TOUCH, STATES EVERYTHING HURTS. SOFT BOOTS TO BLE. WOUND VAC TO BUTTOCK, VAC DRAPE REINFORCED, NOTED LOOSE END. IV SITES X2 NOTED WNL AT THIS TIME. CORRECTIONAL CAPTAIN IN THIS AFTERNOON TO ATTEMPT PICC LINE, STATES INABILITY FOR PATIENT TO HOLD ARM OUT STRAIGHT, WILL NOT BE A STERILE PROCEDURE. NOTIFIED, ORDER REC'D FOR ATIVAN FOR ATTEMPT OF PICC LINE TOMORROW. CORRECTIONAL CAPTAIN PLACED 2ND PERIPHERAL SITE TO RT AC. GOODEN CATH PATENT, YELLOW URINE NOTED, LAST GOODEN CHANGE NOTED TO BE 2018 PER [facility], GOODEN BAG MARKED W/ LAST CHANGE DATE. SEE MAR. ~TJRN
[2019-07-24 21:03] VITALS: BP 133/64
[2019-07-24 22:15] LABS: CALCIUM 8.3 mg/dL (8.5-10.1); CREATININE 0.9 mg/dL (0.6-1.3); MAGNESIUM 2.5 mg/dL (1.8-2.4)
[2019-07-25 04:10] LABS: HEMATOCRIT 20.6 % (42.0-52.0); MCH 24.1 pg (26.0-34.0); MCHC 31.4 g/dL (28.0-37.0); MCV 76.9 fL (80.0-100.0); MPV 7.1 fl. (7.2-11.1); RBC 2.68 mil/uL (4.50-6.00); WBC 15.7 thou/uL (4.0-11.0)
[2019-07-25 04:19] LABS: ALBUMIN 1.4 g/dL (3.4-5.0); CREATININE 0.8 mg/dL (0.6-1.3); MAGNESIUM 2.1 mg/dL (1.8-2.4); POTASSIUM 3.9 mmol/L (3.5-5.1); TOTAL BILIRUBIN 0.5 mg/dL (<0.1-1.0); TOTAL PROTEIN 6.6 g/dL (6.4-8.2)
[2019-07-25 04:22] LABS: HEMOGLOBIN 6.5 gm/dL (14.0-18.0)
--- NOTE | 2019-07-25 04:46 | NUR ---
PATIENT TURNED Q2. PADDING KEPT DRY AND BARRIER CREAM APPLIED. WOUND VAC MONITORED AND DRAINING WELL. CRITICAL LAB VALUE HGB 6.5 CALLED IN 6.[address] GALLEGO 0423. GAVE ZOSYN DIRECTED. DR KENNEDY CALLED AT 0447 DIRECTED TO GIVE 1 UNIT OF BLOOD. WILL BEGIN TRANSFUSION, GAVE MORPHINE 0247 FOR PAIN. PATIENT SEEMED TO HAVE MORE CONFUSION DURING THE NIGHT BUT WAS ABLE TO REMEMBER HE IS HAVING A PICC PLACED AND COULD REPORT PAIN. WILL CONTINUE TO MONITOR. PLAN IS PICC PLACEMENT SUNDAY.
[2019-07-25 07:30] VITALS: BP 122/64
--- NOTE | 2019-07-25 11:41 | NUR ---
ATTEMPTED TO SPEAK WITH CHARGE NURSE AT [facility]. SHE DID NOT ANSWER. LEFT VM FOR D.O.N THAT THERE COULD BE A POTENTIAL FOR PT.TO RETURN OVER THE WEEKEND ON IV ANTIBIOTICS AND HE WILL ALSO NEED A WOUND VAC.
--- NOTE | 2019-07-25 14:24 | NUR ---
RIGHT CEPHALIC VESSEL ACCESSED FOR 4 COLOMBIAN SINGLE LUMEN PICC. LINE PRE-TRIMMED TO 35 CM AND ADVANCED TO THE ZERO TERESITA WITH NO RESISTANCE MET. UPPER ARM CIRCUMFERENCE ABOVE INSERTION SITE= 12". SHERLOCK MAGNET AND 3CG CONFIRMATION OF TIP TERMINATION AT THE CAVO-ATRIAL JUNCTION APPRECIATED. STYLET REMOVED, LINE FLUSHED AND INSERTION SITE DRESSED. REPORT GIVEN TO WILLIAM SO.
--- NOTE | 2019-07-25 14:43 | NUR ---
FAXED UPDATED CLINICAL TO [facility]/MICHELLE LAIRD. DO NOT ANTIPICATE A WEEKEND DC
[2019-07-25 14:45] VITALS: BP 117/65; BP 120/70; BP 123/69; BP 134/65
--- NOTE | 2019-07-25 15:29 | NUR ---
WOUND CARE NOTE: REASSESSMENT OF LEFT BUTTOCK WOUND. VAC IN PLACE, FUNCTIONING, BUT THE DRESSING IS LOOSE AND NOT APPROPRIATELY SEALED. DRESSING REMOVED. FOUL ODOR NOTED. NOW DRAINING BROWN, SEROSANGUINEOUS DRAIANGE. UNDERMINING CONTINUES PREVIOUSLY, BUT NOW PROBES TO BONE AT THE 12 O'CLOCK POSITION. CLEANSED BUTTOCKS, SACRUM WITH SOAP AND WATER, PATTED DRY. WOUND MEASURES 4.1X4.2X2.1 WITH UNDERMINING 5.5CM. AFTER CLEANSING, PACKED WITH SALINE MOISTENED GAUZE AND COVERED WITH A BORDERED FOAM. SPOKE WITH DR. CAREY AND NOTIFIED OF CHANGES IN WOUND CONDITION. NEW ORDERS RECEIVED. REQUESTED THAT THIS WOULD BE ASSESSED BY SURGERY TEAM. ALSO ASSESSED PREVIOUS G-TUBE SITE. RECOMMEND CLEANSING DAILY. APPLYING Z-GUARD BARRIER OINTMENT BID AND COVER WITH GAUZE. MAY USE VASELINE GAUZE, ACCORDIAN FOLDED ON TOP OF Z-GUARD OINTMENT THEN APPLY GAUZE. RECOMMEND CONTINUE WITH Q2 TURNING HOLD WOUND VAC 1/4 STRENGTH JAJAKINS MOISTENED GAUZE PACKING INTO LEFT BUTTOCK WOUND DAILY IMAGING OF ULCERATION SITE? FOLLOW UP IN WOUND CARE CENTER
--- NOTE | 2019-07-25 16:59 | NUR ---
ASSUMED CARE OF PATIENT AT APPROX 0730. ALERT AND ORIENTED X4. ASSESSMENT COMPLETED AND CHARTED. VSS ON 4 LITERS 02. PATIENT CONTINUALLY TAKES HIS 02 OFF, NEEDS REMINDERS TO PUT IT BACK ON. PATIENT RECEIVED 1 UNIT OF BLOOD WITHOUT REACTION. WOUND NURSE ADONIS TO CHANGE WOUND VAC, NOTICED PURULENT DRAINAGE, INCREASED TUNNELING TO BONE AND ODOR TO DRAINAGE. DR CAREY CALLED TO INFORM OF WOUND CHANGES, ORDER TO LEAVE WOUND VAC OFF AND PACK WOUND, SEE CHARTING. DR MOTA PAGED AND GAVE ORDERS FOR LABS TO BE DRAWN. PATIENT NOT SCREENING POSITIVE FOR SEPSIS WIHT ONLY TEMP ELEVATED AND TACHY BEING POSITIVE ON THE SCREENING. ANTIBIOTICS AND TPN INFUSED ORDERED. WILL START TUBE FEEDING AGAIN AFTER DINNER. FALL PRECAUTIONS IN PLACE. CALL LIGHT IN REACH. HOURLY ROUNDS COMPLETED. WILL CONTINIUE TO MONITOR.
--- NOTE | 2019-07-25 18:06 | PATH ---
[address] [address] PATHOLOGY RPT PROCEDURE Name: KARIKIKI Abhi Room: [address] IN .R.#: [id number] Admission: 07/18/19 Date of : 54 Discharge: Report #: [id number] Path Case #: [id number] [facility] Accession Number: [id number] . 01 Material submitted: . PART A: small bowel - SMALL BOWEL BIOPSIES FOR ANEMIA PART B: colon - POLYP PROXIMAL ASCENDING COLON X2 HOT SNARE. Modifiers: proximal, ascending PART C: colon - POLYP PROXIMAL TRANSVERSE COLON HOT SNARE. Modifiers: proximal, transverse PART D: colon - POLYP MIDTRANSVERSE COLON X2 HOT SNARE. Modifiers: mid, transverse PART E: colon - DESCENDING COLON POLYP HOT SNARE. Modifiers: descending . 01 Clinical history: . None provided . 02 Diagnosis: A. Small bowel biopsies: - Normal duodenal mucosa. . B. Polyp proximal ascending colon x2 (hot snare): - Multiple fragments of tubular adenomas, negative for high-grade dysplasia. . C. Polyp proximal transverse colon (hot snare): - Tubular adenoma, negative for high-grade dysplasia. . D. Polyp mid transverse colon x2 (hot snare): - Two tubular adenomas, negative for high-grade dysplasia. . E. Descending colon polyp (hot snare): - Tubular adenoma, negative for high-grade dysplasia. . (NORA:rafi; 07/25/2019) R 07/25/2019 1633 Local . 02 Electronically signed: . Cristiano Jay MD, Pathologist NPI- [id number] . 01 Gross description: . A. Received in formalin labeled "Kiki Pierce, small bowel biopsies for anemia," are 2 segments of golden soft tissue measuring 1.2 x 0.3 x 0.3 cm in aggregate dimensions and ranging from 0.5 to 0.6 cm in maximum dimension. The specimen is submitted entirely in cassette A1. . B. Received in formalin labeled "Kiki Pierce, [place] [address] PATHOLOGY RPT PROCEDURE Name: KIKI PIERCE Room: [address] IN M.R.#: [id number] Admission: 07/18/19 Date of : 54 Discharge: Report #: [id number] Path Case #: [id number] colon x2," is a 0.7 x 0.5 x 0.5 cm polypoid piece of golden soft tissue. The margin is inked and the tissue is sectioned perpendicular to the margin and submitted entirely in cassette B1. Additionally received in the same container are 3 fragments of golden soft tissue measuring 1.1 x 0.8 x 0.3 cm in aggregate dimensions and ranging from 0.3 to 0.5 cm in maximum dimension. The specimen is submitted entirely in cassette B1. . C. Received in formalin labeled "Cones, Kiki, polyp proximal transverse colon," are 2 segments of golden soft tissue measuring 0.8 x 0.4 x 0.3 cm in aggregate dimensions and ranging from 0.3 to 0.5 cm in maximum dimension. The specimen is submitted entirely in cassette C1. . D. Received in formalin labeled "Cones, Kiki, polyp mid transverse colon x2," are 3 segments of golden soft tissue measuring 0.6 x 0.5 x 0.3 cm in aggregate dimensions and ranging from 0.1 to 0.4 cm in maximum dimension. The specimen is submitted entirely in cassette D1. . E. Received in formalin labeled "Cones, Kiki, descending colon polyp," is a single segment of golden soft tissue measuring 0.3 cm in maximum dimension. The specimen is entirely submitted in cassette E1. (TSD; 07/24/2019) TOB/TOB 07/25/2019 1630 Local . 02 Pathologist provided ICD-10: D12.2, D12.3, D12.4 . 02 CPT . 276388, 635639, 685489, [id number], [id number] Specimen Comment: A courtesy copy of this report has been sent to Specimen Comment: [phone], , . Specimen Comment: Report sent to ,DR GALLEGO / DR NERI Performed at: [address], [place], [place] [id number] MD Cecil Javier MD Phone: [phone] Performed at: [facility] [address], [place], [place] [id number] MD Cristiano Jay MD Phone: [phone]
[2019-07-25 19:47] LABS: HEMATOCRIT 24.8 % (42.0-52.0); HEMOGLOBIN 7.7 gm/dL (14.0-18.0); MCH 24.6 pg (26.0-34.0); MCHC 31.2 g/dL (28.0-37.0); MCV 78.8 fL (80.0-100.0); MPV 7.1 fl. (7.2-11.1); NUCLEATED RBCS 0 /100WBC; PLATELET COUNT* 617 thou/uL (150-400); RBC 3.15 mil/uL (4.50-6.00); RDW-CV 19.1 % (10.5-14.5); WBC 19.3 thou/uL (4.0-11.0)
[2019-07-25 19:54] LABS: ALBUMIN 1.5 g/dL (3.4-5.0); CALCIUM 8.4 mg/dL (8.5-10.1); CREATININE 0.9 mg/dL (0.6-1.3); POTASSIUM 3.6 mmol/L (3.5-5.1)
[2019-07-25 20:02] LABS: ABSOLUTE EOSINOPHILS 0.2 thou/uL (0.0-0.7); ABSOLUTE LYMPHOCYTES 0.6 thou/uL (0.8-5.3); ABSOLUTE MONOCYTES 0.4 thou/uL (0.0-1.2); ABSOLUTE NEUTROPHILS 18.1 thou/uL (1.6-8.1); PLATELET ESTIMATE INCREASED
[2019-07-25 20:03] LABS: ANISOCYTOSIS 1+; HYPOCHROMASIA 1+
[2019-07-25 21:30] VITALS: BP 115/68
[2019-07-26] VITALS: BP 120/59
[2019-07-26 04:00] VITALS: BP 104/66
--- NOTE | 2019-07-26 07:30 | NUR ---
PT IS ABLE TO COMMUNICATE HIS NEEDS TO STAFF WITH SOME DIFFICULTY; HE IS BLIND (CAN SEE SOME SHAPES) AND HE IS HARD TO UNDERSTAND WHEN HE SPEAKS; SPEECH IS NOT WELL ENUNCIATED. CURRENT PAIN MEDICATION REGIMEN HAS BEEN ADEQUATE FOR CONTROLLING HIS PAIN UP TO THIS TIME. TUBE FEEDING RESTATRED PER GI/ HOSPITALIST ORDERS AND RATE IS AT GOAL AT THIS TIME. GOODEN AND PEG TUBE ARE PATENT.
[2019-07-26 08:17] VITALS: BP 102/55
--- NOTE | 2019-07-26 09:48 | NUR ---
ASSUMED CARE OF PT THIS AM AROUND 0715- QA AUTOMATION ENGINEER IN PLACE ORDERED, TRACING ST- UPON ASSESSMENT PT NOTED TO BE RESTING IN BED- PT A&O 2-3 WITH NOTED CONFUSSION- INCONTINENT OF BOWEL, GOODEN IN PLACE D/D CLEAR WILLIAM URINE- Q [address] INDICATED- COURSE LUNG SOUNDS NOTED, AUDIBLE WETNESS NOTED IN THROAT, BED AT 45 DEGREES INDICATED-CHEST X-RAY ORDERED THIS AM, DEEP SUCTION T BE PERFOMED PER RT THIS SHIFT- VSS, O2 SAT 93% ON RA- ABD SOFT/ROUND/NON-TENDER, BS X4 QUADS- LAST BM REPORTED X3 DAYS AGO- PEG TUBE NOTED WITH TF AT 40ML/HR INDICATED/GOAL RATE- PROCALAMINE D/C'D THIS AM- RUE SINGLE LUMEN PICC NOTED INTACT, DRESSING C/D/I, IV ABT INFUSSING PRESCIBED- 22 GAUGE IV PLACED TO RIGHT HAND THIS AM, IRON INFUSSIN INFUSSING PRESCIBED- DRESSING NOTED INTACT AND DUE TO BE CHANGED LATER THIS SHIFT-CALL LIGHT AND PERSONAL BELONGINGS WITH IN REACH- HOURLY ROUNDS IN PLACE R/T SAFETY/NEEDS- ALL NEEDS MET AT THIS TIME-WCTM
[2019-07-26 11:23] VITALS: BP 94/52
[2019-07-26 15:33] VITALS: BP 103/67
--- NOTE | 2019-07-26 17:32 | NUR ---
PT CURRENTLY RESTING IN BED- Q [address] INDICATED- BEEF CATTLE SPECIALIST IN PLACE ORDERE, TRACING ST- RUE PICC AND RIGHT HAND IV NOTED INTACT- TF INFUSSING INDCATED, BS MONITORED ORDERED- FLUSHES PER TUBE PRESCIBED- DRESSING TO BLE, PEG SITE AND BOTTOM CHANGE ORDERED THIS SHIFT- LOW AIR LOSS MATTRESS IN PLACE- ARIANNA FEET OFF LOADED WITH BOOTS IN PLACE-BED AT 45 DEGREES INDICATED- FREQUENT CHECKS IN PLACE- ALL NEEDS MET AT THIS TIME-WCTM
[2019-07-26 20:00] VITALS: BP 100/49
[2019-07-27 00:42] VITALS: BP 101/55
[2019-07-27 04:00] VITALS: BP 97/60
[2019-07-27 04:43] LABS: HEMATOCRIT 23.9 % (42.0-52.0); HEMOGLOBIN 7.3 gm/dL (14.0-18.0); MCH 24.2 pg (26.0-34.0); MCHC 30.7 g/dL (28.0-37.0); MCV 78.9 fL (80.0-100.0); MPV 7.5 fl. (7.2-11.1); RBC 3.03 mil/uL (4.50-6.00); WBC 14.9 thou/uL (4.0-11.0)
[2019-07-27 04:53] LABS: CALCIUM 8.2 mg/dL (8.5-10.1); CREATININE 0.8 mg/dL (0.6-1.3); POTASSIUM 3.6 mmol/L (3.5-5.1)
--- NOTE | 2019-07-27 05:30 | NUR ---
ASSUMED PT CARE AT APPROX 1930. PT IS AWAKE AND ORIENTED X3-CONFUSED AND FORGETFUL AT TIMES. VSS ON 3L OF O2/NC. AUTOMOBILE DAMAGE APPRAISER IN PLACE TRACING SR/ST. PEG TUBE INTACT CONTIUOUS INFUSION OF GLUCERNA 1.2 AT 40ml/hr. WATER BOLUSES GIVEN PRESCRIBED. NO NAUSEA/VOMITING NOTED. MAINTAINED ON NPO. ASSESSMENT DONE AND CHARTED. PT REFUSED SOME TURNS, EDUCATION GIVEN ON THE IMPORTANCE OF POSITION CHANGES. OFF LOADING BOOTS MAINTAINED PRESCRIBED. HOURLY ROUNDING DONE. CALL LIGHT WITHIN REACH.
[2019-07-27 08:00] VITALS: BP 96/52
[2019-07-27 12:32] VITALS: BP 109/54
[2019-07-27 16:13] VITALS: BP 107/59
--- NOTE | 2019-07-27 19:44 | NUR ---
PT VSS, NSR ON TELE. PT ORIENTED BUT HAS BASELINE CONFUSION WITH HALUCINATIONS. PT REPORTS PEOPLE ARE BOTHING HIM. PT NPO AND REPORTED THIRSTY ALL DAY. PT HAS TUBE FEED RUNNING AT 40ML/HR. PT HAS PRESSURE WOUNDS (7) WOUNDS CLEANED, PHOTOS TAKEN, DRESSINGS REPLACED. POSSESSION AN CALL LIGHT WITHIN REACH. GOODEN CATHETER IN PLACE, YELLOW CLOUDY OUTPUT. PT PARAPLEGIC WITH VERY LITTLE MOVEMENT OF THE LEGS. JOINT DEFORMINTIES IN THE HANDS, AND MINOR CONTRACTURE OF ALL EXTREMITIES. HOURLY ROUNDING PERFORMED.
[2019-07-27 20:00] VITALS: BP 90/50
[2019-07-28] VITALS: BP 96/50
[2019-07-28 04:00] VITALS: BP 97/43
--- NOTE | 2019-07-28 05:41 | NUR ---
ASSUMED PT CARE AT APPROX 1930. PT IS AWAKE BUT FORGETFUL, w/ PERIODS OF HALLUCINATION, PT SAYS HE IS "GOING TO A DEMOCRAT", ASSESSMENT DONE AND CHARTED. PT HAS PEG TUBE INTACT, WITH CONTINUOUS GLUCERNA 1.2 GOING AT 40ml/HR. FEEDING WELL TOLERATED. PT REFUSED SOME TURNS, REMINDED OF THE IMPORTANCE OF REPOSITIONING GIVEN PRESENCE OF MULTIPLE PRESSURE WOUNDS. OFF LOADING BOOTS IN PLACE. CALL LIGHT WITHIN REACH. PT IS CLOSELY MONITORED.
[2019-07-28 05:44] LABS: ABSOLUTE BASOPHILS 0.1 thou/uL (0.0-0.2); ABSOLUTE EOSINOPHILS 0.3 thou/uL (0.0-0.7); ABSOLUTE LYMPHOCYTES 1.3 thou/uL (0.8-5.3); ABSOLUTE MONOCYTES 0.9 thou/uL (0.0-1.2); ABSOLUTE NEUTROPHILS 9.4 thou/uL (1.6-8.1); EOSINOPHILS 2.6 %; HEMATOCRIT 22.8 % (42.0-52.0); HEMOGLOBIN 7.1 gm/dL (14.0-18.0); MCH 24.9 pg (26.0-34.0); MCHC 31.4 g/dL (28.0-37.0); MCV 79.4 fL (80.0-100.0); MONOCYTES 7.7 %; MPV 7.3 fl. (7.2-11.1); NUCLEATED RBCS 0 /100WBC; PLATELET COUNT* 488 thou/uL (150-400); POLYS 77.7 %; RBC 2.87 mil/uL (4.50-6.00); WBC 12.1 thou/uL (4.0-11.0)
[2019-07-28 06:31] LABS: % SATURATION 14 % (20-39); IRON 14 ug/dL (50-175)
[2019-07-28 08:00] VITALS: BP 99/56
[2019-07-28 12:17] VITALS: BP 105/55
[2019-07-28 16:19] VITALS: BP 111/60
--- NOTE | 2019-07-28 16:21 | NUR ---
WOUND NURSE: PATIENT SEEN FOR DRESSING CHANGE TO LEFT BUTTOCK AREA AND SACRUM. PRESENTS WITH OPEN CRATER CONTAINING GRANULATING AND NONGRANULATING RED TISSUE IN THE WOUND BED. PERIWOUND AREA WITH SIGNIFICANT RED, EXCORIATION. THERE IS LARGE AMOUNT OF SEROUSANGUINOUS DRAINAGE ON THE OLD DRESSING. CLEANSED WITH SOAP AND WATER,RINSED, THEN PATTTED DRY. APPLIED 1/4 STR DAKINS DAMPENED GAUZE TO TO WOUND BED, THEN COVERED WITH ABD, AND SECURED WITH TAPE. APPLIED ZGUARD TO THE PERIWOUND TISSUE. MORE SACRAL WOUNDING WITH DEEP TISSUE INJURY AND PARTIAL BLACKENED ESCHAR NOTED. THIS WAS ALSO CLEANSED PREVIOUSLY MENTIONED THEN SECURED OPTIFOAM GENTLE AG TO THE SITE AND SECURED WITH PAPER TAPE. THIS WAS TOLERATED WELL BY THE PATIENT. OTHER WOUNDS WERE NOT ADDRESSED AT THIS TIME BY THIS NURSE.
--- NOTE | 2019-07-28 17:03 | PROC ---
[address] [address] PROCEDURE REPORT Name: KIKI PIERCE Abhi Room: [address] IN .R.#: [id number] Admission: 07/18/19 Attend Phys: Julito Ren MD Discharge: Date of : 54 Report #: [id number] THIS REPORT FOR: //name// CC: Julito Washington DATE OF SERVICE: 07/19/2019 PROCEDURE PERFORMED: Removal of existing gastrostomy tube with placement of a 20-Latvian balloon replacement tube. SEDATION USED: None. SPECIMEN RETRIEVED: One 20-Latvian x 2.5 cm JENNIFER-CR low profile button PEG. INDICATIONS: The patient is a 68-year-old white male who was admitted to the hospital because of problem with PEG tube malfunction and drainage around the same. He is to need of removal of his gastrostomy tube and placement of a temporary balloon replacement tube until we can find a new site for feeding tube. Because of issues with drainage around the existing gastrostomy tube, this tube is being removed and replaced with a 20-Latvian balloon replacement tube. PHYSICAL EXAMINATION: GENERAL: Revealed an ill-appearing 68-year-old white male who is awake and alert. CARDIOPULMONARY: Benign. ABDOMEN: Soft and there is drainage around the existing gastrostomy tube suggestive of more of a chemical burn down infection there. DESCRIPTION OF PROCEDURE: Because this was a simple procedure, the procedure was done under medical necessity. The existing gastrostomy tube was removed after the balloon was deflated completely and then a 20-Latvian balloon replacement tube with a rectangular bumper was then advanced through the skin and into the stomach. Gastric contents were aspirated. The outside rectangular bumper was cinched up against the skin. The patient tolerated the procedure without apparent complication. IMPRESSION: 1. Successful removal of a 20-Latvian x 2.5 cm JENNIFER-CR button PEG. 2. Successful placement of 20-Latvian balloon replacement gastrostomy tube with a rectangular bumper through the [place] [address] PROCEDURE REPORT Name: KIKI PIERCE Room: [address] IN [facility].#: [id number] Admission: 07/18/19 Attend Phys: Julito Ren MD Discharge: Date of : 54 Report #: [id number] RECOMMENDATIONS: 1. We can use this tube at this point for any medications, tube feedings, fluid boluses, etc. 2. The patient will be getting a wound VAC placed in the near future. 3. Once the patient has had this done, we can then proceed with bowel preparation over a couple of days and have the patient undergo both upper and lower endoscopy in the near future. This needs to be done as an inpatient. 4. I discussed all these plans with the patient as well and he is agreeable to the same. <ELECTRONICALLY SIGNED> By: Oseas Oneill, 07/28/19 1703 0951 [id number] Oneill DO /nt
--- NOTE | 2019-07-28 17:03 | CON ---
[address] [address] CONSULTATION Name: KARIKIKI Abhi Room: [address] IN M.R.#: [id number] Admission: 07/18/19 Attend Phys: Julito Ren MD Discharge: Date of : 54 Report #: [id number] THIS REPORT FOR: //name// CC: Julito Washington MD DATE OF SERVICE: 07/19/2019 GASTROINTESTINAL CONSULTATION REFERRING PHYSICIAN: Julito Ren MD REASON FOR CONSULTATION: PEG tube dysfunction. IMPRESSION: 1. Percutaneous endoscopic gastrostomy tube malfunction - 20-Cameroonian x 2.5-cm JENNIFER-CR button Percutaneous endoscopic gastrostomy replaced with a 20-Cameroonian balloon replacement tube at the bedside. 2. Oropharyngeal dysphagia requiring gastrostomy tube placement in 03/[address] Calles at [facility]. 3. Anemia of chronic disease plus some element of possible iron deficiency anemia. 4. Chronic constipation exacerbated by chronic oral iron supplementation via G-tube. 5. Chronic sacral decubitus ulcer contributing to anemia of chronic disease plus some element of possible iron deficiency anemia. 6. Paraplegia. 7. Multiple other medical issues. RECOMMENDATIONS: 1. I have replaced the patient's existing JENNIFER-CR button PEG with a balloon replacement tube at the bedside and it can be used for tube feedings and medications at this time. 2. We will contact his caregivers at [facility] to see what his diet consists of and whether or not he is asked to have thickened liquids as well. We will also need to know his current bowel regimen. 3. Given the fact that the patient has anemia of chronic disease plus possibly some element of iron deficiency anemia, I would recommend he undergo a 2-day bowel preparation via his G-tube and undergo an upper endoscopy with placement of a new gastrostomy tube since this appears to be not a good site and a colonoscopy during this hospital stay. We can arrange for this to happen during this week. 4. I have discussed the plans with the patient as well and [place] [address] CONSULTATION Name: KIKI PIERCE Abhi Room: [address] IN [facility]#: [id number] Admission: 07/18/19 Attend Phys: Julito Ren MD Discharge: Date of : 54 Report #: [id number] HISTORY OF PRESENT ILLNESS: The patient is an unfortunate 68-year-old white male with paraplegia and chronic sacral decubitus ulcer, who presented to the emergency room with lethargy, worsening weakness and just not feeling well. He currently resides at [facility] in [place] and has presented to the emergency room because of the same. He has had some problems with the sacral decubitus ulcer and the like. The patient has apparently oropharyngeal dysphagia for which he underwent gastrostomy placement back in 03/2019 at [facility]. I was able to retrieve those records from [place] and reviewed those in detail. He has had problems with paraplegia and wasting syndrome as well. He denies complaints of any dysphagia, reflux or indigestion. He does have problem with chronic constipation. He gets tube feedings through his gastrostomy tube. He was recently seen in our office by my partner, Dr. Choi, who replaced his existing gastrostomy tube with JENNIFER-CR button PEG. He still has had some problem with acid burn around the PEG tube site. It appears that this site will need to be revised for his gastrostomy tube. He does have a history of chronic anemia, but denies any black stools or tarry stools. He does take iron supplementation via his G-tube. He is admitted to the hospital for further evaluation and treatment. ALLERGIES: ADHESIVE TAPE, HYDROCODONE, LISINOPRIL AND SULFA. MEDICATIONS: At home include insulin, ascorbic acid, Protonix, gabapentin, DuoNeb, nystatin, Zofran, calcium and oxycodone. PAST MEDICAL AND SURGICAL HISTORY: Remarkable for diabetes mellitus, polyneuropathy, paraplegia. He has had problems of oropharyngeal dysphagia and he has had a gastrostomy tube. He has chronic indwelling Randle. He has severe debility, protein-calorie malnutrition. He has had previous spinal surgery. He has had problem with chronic anemia, chronic pain syndrome, sacral decubitus ulcers. He has had history of pheochromocytoma with previous surgical resection. SOCIAL HISTORY: The patient has a history of chronic tobacco and alcohol use. FAMILY HISTORY: Negative. PHYSICAL EXAMINATION: GENERAL: Revealed a very frail, ill-appearing 68-year-old white male, who is in no apparent distress. CARDIOPULMONARY: Revealed a regular rate and rhythm. LUNGS: Clear. ABDOMEN: Soft. He does have some irritation around his existing gastrostomy tube. No rebound or guarding noted. LABORATORY TESTS: From admission revealed white count of 13.9, hemoglobin 6.9, [address] [place] [address] CONSULTATION Name: KIKI PIERCE Room: [address] IN .R.#: [id number] Admission: 07/18/19 Attend Phys: Julito Ren MD Discharge: Date of : 54 Report #: [id number] platelet count 841,000. MCV is 75.3 and RDW is 19.1. His sodium is 137, potassium 4.1, chloride 99, bicarb is 30. His BUN is 38, creatinine 1.1. Total bilirubin 0.3, alkaline phosphatase 85, AST 14, ALT 13, his albumin is only 1.7. DISCUSSION: At the present time, the patient is in need of a GI evaluation. I have already proceeded with replacement of his gastrostomy tube and eventually once the patient has a wound VAC placed over sacral decubitus ulcer, we will proceed with bowel preparation over couple of days and endoscopic evaluation of his upper and lower GI tract. At that time, I will place the new feeding tube in a different position and remove the existing gastrostomy tube with hopes that it will clear. I have discussed the plans with the patient as well and he is agreeable with the same. <ELECTRONICALLY SIGNED> By: Oseas Oneill DO 07/28/19 1703 0948 [id number] Oneill DO /nt
[2019-07-28 20:00] VITALS: BP 118/58
--- NOTE | 2019-07-28 20:03 | NUR ---
PT VSS, NSR TO ST ON TELE, PT PARAPLEGIC WITH PRESSURE INJURIES NOTED IN CHART. PT IS A&OX4 MOST OF THE DAY. OCCASSIONALLY HE GETS CONFUSED. PT AT BASELINE REPORTS SEEING THINGS AND TALKS TO PEOPLE IN THE ROOM WITH HIM WHO ARE NOT THERE, BUT IS STILL ABLE TO ANSWER ORIENTATION QUESTIONS. PT IS INCONTINENT OF BOWEL, AND VOIDS BY GOODEN CATHETER. PT HAS PEG TUBE WITH TUBE FEEDS INFUSING AT 40ML/HR MOST OF THE DAY. TUBE FEEDS AND WATER BOLUS WERE LEAKING FROM INFECTED TUBE FEED SITE. TUBE FEEDS HELD. PT IS HIGH FALL RISK BUT IS MAX ASSIST WITH LIFT. POSSESSIONS AND CALL LIGHT WITHIN REACH. HOURLY ROUNDING PERFORMED
--- NOTE | 2019-07-28 20:27 | NUR ---
THIS RN HAS REVIEWED AND AGREES WITH THE ASSESSMENT AND CHARTING OF TERESITA SO.
[2019-07-29] VITALS: BP 102/42
[2019-07-29 04:00] VITALS: BP 105/51
[2019-07-29 05:03] LABS: HEMATOCRIT 23.8 % (42.0-52.0); HEMOGLOBIN 7.4 gm/dL (14.0-18.0); MCH 24.6 pg (26.0-34.0); MCHC 31.1 g/dL (28.0-37.0); MCV 79.1 fL (80.0-100.0); MPV 7.9 fl. (7.2-11.1); NUCLEATED RBCS 0 /100WBC; PLATELET COUNT* 497 thou/uL (150-400); RBC 3.01 mil/uL (4.50-6.00); RDW-CV 20.4 % (10.5-14.5); WBC 12.4 thou/uL (4.0-11.0)
[2019-07-29 05:21] LABS: ALBUMIN 1.5 g/dL (3.4-5.0); CALCIUM 8.4 mg/dL (8.5-10.1); POTASSIUM 3.7 mmol/L (3.5-5.1); TOTAL BILIRUBIN 0.5 mg/dL (<0.1-1.0)
--- NOTE | 2019-07-29 05:30 | NUR ---
ASSUMED PATIENT CARE AT 1900. PATIENT ALERT AND ORIENTED TIMES FOUR. NOTED TO BE HAVING HALLUCINATIONS AND DELUSIONS. TUBE FEEDING STOPPED BY DAY SHIFT. NOT RESTARTED BY HS RN PER DR NOTE STATING "DO NOT USE NEW TUBE UNTIL OLD SITE IS HEALED" OLD SITE IS NOT HEALED AND STILL LEAKING GASTRIC FLUID. ALSO UNABLE TO CHECK RESIDUAL FROM GASTRONOMY. TUBING CLOSES UP WHEN ATTEMPTING TO CHECK RESIDUAL. BED BATH GIVEN AND ALL DRESSING CHANGES COMPLETED. OLD CATHETER REMOVED IT WAS LEAKING AND HAD BEEN IN PLACE FROM [facility]. UNABLE TO GET A NEW GOODEN IN.
[2019-07-29 05:31] LABS: ABSOLUTE EOSINOPHILS 0.2 thou/uL (0.0-0.7); ABSOLUTE LYMPHOCYTES 1.5 thou/uL (0.8-5.3); ABSOLUTE MONOCYTES 0.5 thou/uL (0.0-1.2); ABSOLUTE NEUTROPHILS 10.2 thou/uL (1.6-8.1)
[2019-07-29 05:32] LABS: ANISOCYTOSIS 1+; PLATELET ESTIMATE ADEQUATE; POIKILOCYTOSIS 1+
[2019-07-29 08:00] VITALS: BP 103/51
--- NOTE | 2019-07-29 09:58 | NUR ---
LANA spoke with , LANA initiated referral to [facility]. Spoke with Gonzalo from [facility], he will be out today to eval. Updated nurse
[2019-07-29 12:00] VITALS: BP 111/64
--- NOTE | 2019-07-29 15:38 | NUR ---
ASSUMED PT CARE AT 0800, AOX3, CONFUSED, PT BEDREST, O2 SAT 90'S AT 1.5L NC, TRACING SINUS TACH ON TELE. PT DENIES PAIN. PT HAS PEG TUBE, HAS GLUCERNA 1.2 AT 40ML/HR . PT FOR ACCU CHECK, PT ON ANTIBIOTIC, PICC LINE INTACT. PT HAS MULTIPLE OPEN SORE, C/D/I. PT INCONTINENT OF BOWEL & BLADDER. PT ON ISO FOR MRSA. LAST BM TODAY. PT Q2 TURN. VSS, AM ASSESSMENT CHARTED, MEDS GIVEN PER MAR, CALL LIGHT WITHIN REACH, WILL CONTINUE TO MONITOR.
[2019-07-29 16:27] VITALS: BP 113/74
[2019-07-29 20:00] VITALS: BP 131/60
[2019-07-30 00:12] VITALS: BP 118/62
[2019-07-30 04:20] VITALS: BP 124/76
--- NOTE | 2019-07-30 05:57 | NUR ---
ASSUMED PATIENT CARE AT 1900. PATIENT NOTED TO HAVE TUBE FEEDING LEAKING OUT OF UNHEALED OLD PEG TUBE SITE. TUBE FEEDING SLOWED DOWN TO A RATE OF 25. NO COMPLAINTS OF PAIN OR DISCOMFORT NOTED. ROLLOUT MANAGER AND HOURLY ROUNDING COMPLETED CHARTED.
[2019-07-30 07:30] VITALS: BP 106/64
[2019-07-30 08:00] VITALS: BP 106/64
--- NOTE | 2019-07-30 09:43 | NUR ---
ASSUMED PT CARE AT 0730, AOX3, CONFUSED, MAX ASSIST, O2 SAT 90'S 1.5L NC. PT DENIES PAIN. PT FOR ACCU CHECK. PT ON GLUCERNA 1.2 ON PEG TUBE. PT Q2 TURN, PT INCONTINENT OF BLADDER AND BOWEL. LAST BM TODAY. PT MULTIPLE WOUND/SORE C/D/I. PICC LINE INTACT, ANTIBIOTIC GOING. VSS, AM ASSESSMENT CHARTED, MEDS GIVEN PER MAR, HOURLY ROUNDING OBSERVED, CALL LIGHT WITHIN REACH, WILL CONTINUE TO MONITOR.
--- NOTE | 2019-07-30 10:45 | NUR ---
Nutrition: current TF at 40 ml/hr only meeting about 50% of est kcal and high-end protein needs. To meet >90% est nutrition needs, rec TF goal rate of 75 ml/hr. If unable to increase TF rate, rec consider supplemental parenteral nutrition.
[2019-07-30 11:49] VITALS: BP 122/88
[2019-07-30] MEDS ORDERED: LORAZEPAM 22 MG/1 ML IV PUSH (12:05)
[2019-07-30] MEDS ORDERED: PIPERACIL-TA3.375 G1 IV (12:07)
[2019-07-30] MEDS ORDERED: VENOFER50 MG/2.5 IV (12:11)
[2019-07-30 12:14] VITALS: BP 122/88
--- NOTE | 2019-07-30 13:48 | NUR ---
PT TRANSFER TO [facility]. GIVE REPORT TO NURSE MERLYN. TELE REMOVE, ALL BELONGINGS PACKED AND CHECKED. DISCHARGE PACKET GIVEN TO EMS, LEFT THE UNIT AT 1315.
== END 2019-07-30 13:10 | DRG 871 ==
LOC: M.ERS 11:03 → M.2W 13:00 → M.TBA-ER 13:00 → M.ORTHSURG 13:00 → M.2W 07-25 21:05
PROVIDERS: Family Medicine; Internal Medicine; Internal Medicine Hematology & Oncology; Nurse Practitioner Family; ADMIT Internal Medicine
PROC: 0DBM8ZZ Excision of Descending Colon, Via Natural or Artificial Opening Endoscopic (ICD-10-PCS; principal; 2019-07-23)
PROC: 0DBK8ZZ Excision of Ascending Colon, Via Natural or Artificial Opening Endoscopic (ICD-10-PCS; principal; 2019-07-23)
PROC: 0DBL8ZZ Excision of Transverse Colon, Via Natural or Artificial Opening Endoscopic (ICD-10-PCS; principal; 2019-07-23)
PROC: 0DB98ZX Excision of Duodenum, Via Natural or Artificial Opening Endoscopic, Diagnostic (ICD-10-PCS; principal; 2019-07-23)
PROC: 02HV33Z Insertion of Infusion Device into Superior Vena Cava, Percutaneous Approach (ICD-10-PCS; 2019-07-25)
PROC: 0D20XUZ Change Feeding Device in Upper Intestinal Tract, External Approach (ICD-10-PCS; 2019-07-27)
DX: A41.9 Sepsis, unspecified organism (principal); E43 Unspecified severe protein-calorie malnutrition; K94.23 Gastrostomy malfunction; L97.829 Non-pressure chronic ulcer of other part of left lower leg with unspecified severity; G82.20 Paraplegia, unspecified; N39.0 Urinary tract infection, site not specified; G93.40 Encephalopathy, unspecified; K94.22 Gastrostomy infection; D50.9 Iron deficiency anemia, unspecified; E11.42 Type 2 diabetes mellitus with diabetic polyneuropathy; K44.9 Diaphragmatic hernia without obstruction or gangrene; D47.3 Essential (hemorrhagic) thrombocythemia; D12.2 Benign neoplasm of ascending colon; D12.4 Benign neoplasm of descending colon; D12.3 Benign neoplasm of transverse colon; K64.4 Residual hemorrhoidal skin tags; L89.329 Pressure ulcer of left buttock, unspecified stage; R13.12 Dysphagia, oropharyngeal phase; D63.8 Anemia in other chronic diseases classified elsewhere; K59.09 Other constipation; L89.159 Pressure ulcer of sacral region, unspecified stage; F17.210 Nicotine dependence, cigarettes, uncomplicated; Z68.22 Body mass index [BMI] 22.0-22.9, adult; Z90.49 Acquired absence of other specified parts of digestive tract; Z79.4 Long term (current) use of insulin; Z79.899 Other long term (current) drug therapy; Z88.2 Allergy status to sulfonamides; Z88.8 Allergy status to other drugs, medicaments and biological substances; Y83.3 Surgical operation with formation of external stoma as the cause of abnormal reaction of the patient, or of later complication, without mention of misadventure at the time of the procedure; Y92.89 Other specified places as the place of occurrence of the external cause